=== PATIENT | female | born 1965 | race Caucasian/White ===

== ENCOUNTER 2017-02-09 17:34 | Inpatient (IN) | payer OTHER ==
[~2017-02-09] VITALS: Ht 162.6 cm; Wt 58.5 kg
[~2017-02-09 17:34] MED LIST changes: -BACTRIM DS TAB1 EACH PO; -CIPROFLOXACIN500 M1 PO; -CYMBALTA30 MG PO; -DOLOPHINE HCL5 MG PO; -HYDROCODON-ACE1 EAC8 PO; -POTASSIUM600 MG PO
[2017-02-09 17:41] VITALS: BP 108/60
[2017-02-09] MEDS ORDERED: HYDROCODON-ACE1 EAC8 PO (17:44)
[2017-02-09] MEDS ORDERED: DOLOPHINE HCL5 MG PO (17:44)
[2017-02-09 18:54] LABS: URINE BILIRUBIN NEGATIVE (Negative); URINE BLOOD NEGATIVE (Negative); URINE CLARITY CLEAR; URINE COLOR YELLOW; URINE GLUCOSE-RANDOM NEGATIVE (Negative); URINE KETONES NEGATIVE (Negative); URINE LEUKOCYTES-REFLEX NEGATIVE (Negative); URINE NITRITE-REFLEX NEGATIVE (Negative); URINE PROTEIN NEGATIVE (Negative); URINE UROBILINOGEN 0.2 E.U./dl (0.2-1.0)
[2017-02-09 19:49] LABS: ABSOLUTE EOSINOPHILS 0.1 thou/uL (0.0-0.7); ABSOLUTE LYMPHOCYTES 2.6 thou/uL (0.8-5.3); ABSOLUTE MONOCYTES 0.5 thou/uL (0.0-1.2); ABSOLUTE NEUTROPHILS 1.9 thou/uL (1.6-8.1); BASOPHILS 0.4 %; EOSINOPHILS 2.2 %; HEMATOCRIT 24.5 % (37.0-47.0); HEMOGLOBIN 7.2 gm/dL (12.0-15.0); LYMPHOCYTES 50.1 %; MCH 22.9 pg (26.0-34.0); MCHC 29.3 g/dL (28.0-37.0); MONOCYTES 9.8 %; MPV 7.2 fl. (7.2-11.1); NUCLEATED RBCS 0 /100WBC; PLATELET COUNT* 485 thou/uL (150-400); POLYS 37.5 %; RBC 3.13 mil/uL (4.20-5.00); RDW-CV 17.3 % (10.5-14.5); WBC 5.1 thou/uL (4.0-11.0)
[2017-02-09 19:54] LABS: ANION GAP 8 mmol/L (7-16); BUN 19 mg/dL (7-18); CALCIUM 7.6 mg/dL (8.5-10.1); CHLORIDE 108 mmol/L (98-107); CO2 23 mmol/L (21-32); CREATININE 0.6 mg/dL (0.6-1.3); GLUCOSE 109 mg/dL (70-99); POTASSIUM 3.6 mmol/L (3.5-5.1); SODIUM 139 mmol/L (136-145)
[2017-02-09 19:56] LABS: APTT 41.7 Seconds (25.0-31.3); INR 1.1; PROTIME 11.1 Seconds (9.20-11.50)
[2017-02-09 20:00] LABS: ALBUMIN 3.1 g/dL (3.4-5.0); ALKALINE PHOSPHATASE 215 U/L (46-116); LIPASE 107 U/L (73-393); SGOT 21 U/L (15-37); SGPT 26 U/L (30-65); TOTAL BILIRUBIN 0.3 mg/dL (<0.1-1.0); TOTAL PROTEIN 6.4 g/dL (6.4-8.2); TROPONIN-I LEVEL <0.06 ng/mL (<0.06)
[2017-02-09 20:12] LABS: ANISOCYTOSIS 1+; HYPOCHROMASIA 2+; PLATELET ESTIMATE ADEQUATE; TARGET CELLS 1+
[2017-02-09 21:32] VITALS: BP 92/54
[2017-02-09 22:00] VITALS: BP 105/64
[2017-02-10 07:59] VITALS: BP 92/48
[2017-02-10 11:40] LABS: CALCIUM 7.4 mg/dL (8.5-10.1); CREATININE 0.7 mg/dL (0.6-1.3); MAGNESIUM 1.9 mg/dL (1.8-2.4); POTASSIUM 3.8 mmol/L (3.5-5.1)
[2017-02-10 20:00] VITALS: BP 114/68
[2017-02-11 01:15] VITALS: BP 103/63; BP 86/44; BP 87/46; BP 90/49; BP 94/53
[2017-02-11 01:35] VITALS: BP 112/69
[2017-02-11 05:00] VITALS: BP 90/49
[2017-02-11 07:22] LABS: HEMATOCRIT 25.1 % (37.0-47.0); HEMOGLOBIN 7.6 gm/dL (12.0-15.0); MCH 23.4 pg (26.0-34.0); MCHC 30.2 g/dL (28.0-37.0); MCV 77.3 fL (80.0-100.0); NUCLEATED RBCS 0 /100WBC; RBC 3.25 mil/uL (4.20-5.00); RDW-CV 16.5 % (10.5-14.5); WBC 3.1 thou/uL (4.0-11.0)
[2017-02-11 07:29] LABS: CALCIUM 7.3 mg/dL (8.5-10.1); CREATININE 0.6 mg/dL (0.6-1.3); POTASSIUM 3.8 mmol/L (3.5-5.1)
[2017-02-11 07:31] LABS: PLATELET COUNT* 369 thou/uL (150-400)
[2017-02-11 07:53] LABS: ABSOLUTE EOSINOPHILS 0.2 thou/uL (0.0-0.7); ABSOLUTE LYMPHOCYTES 1.5 thou/uL (0.8-5.3); ABSOLUTE MONOCYTES 0.1 thou/uL (0.0-1.2); ABSOLUTE NEUTROPHILS 1.2 thou/uL (1.6-8.1); ATYPICAL LYMPHS 1 %; HYPOCHROMASIA 2+; PLATELET ESTIMATE ADEQUATE
[2017-02-11 07:54] LABS: ANISOCYTOSIS 2+; POIKILOCYTOSIS 1+; TARGET CELLS Occasional
[2017-02-11 07:55] LABS: OVALOCYTES Occasional
--- NOTE | 2017-02-11 14:00 | EKG ---
[place] [address] ELECTROCARDIOGRAM REPORT Name: TONY MEDINA Room: [address] ADM IN .R.#: [id number] Admission: 02/09/17 Attend Phys: Sonja Isaac Discharge: Date of : 67 Report #: [id number] THIS REPORT FOR: //name// [facility] ED Test Date: 2017-02-09 Test Time: 20:07:57 Pat Name: TONY MEDINA Department: Room: [facility] Gender: F Recycle Driver: OSCAR : 1965 Requested By: Yary Edwards Order Number: [id number] MD: Amanuel Reid Measurements Intervals [place] Rate: 79 P: 60 MT: 152 QRS: 65 QRSD: 74 T: 39 QT: 371 QTc: 426 Interpretive Statements Sinus rhythm Low voltage, precordial leads Borderline T abnormalities, anterior leads Compared to ECG 11/30/2016 11:29:15 Low QRS voltage now present Electronically Signed On 02-11-2017 14:00:34 IN STORE MARKETING ASSOCIATE by Amanuel Reid [email or web address] <ELECTRONICALLY SIGNED> By: Amanuel Reid MD, FACC 02/11/17 1400 06 06 Amanuel Reid MD, FAC /EPI
[2017-02-11 14:44] VITALS: BP 90/49
[2017-02-11 15:14] VITALS: BP 90/49
[2017-02-11 18:25] VITALS: BP 90/49
[2017-02-14 17:07] LABS: ANA INTERPRETATION Negative (())
--- NOTE | 2017-02-17 20:20 | CON ---
[address] [address] CONSULTATION Name: ADAMTONY L Room: [address]R.#: [id number] Admission: 02/09/17 Attend Phys: Sonja Isaac Discharge: 02/11/17 Date of : 67 Report #: [id number] THIS REPORT FOR: //name// CC: Terrell Lockhart DO DICTATED BY: Naina Ignacio [facility] DATE OF SERVICE: 02/10/2017 PRIMARY CARE PHYSICIAN: Terrell Squires D.O. REFERRING PHYSICIAN: Josh Lockhart DO Please note at the time of this dictation, the patient was seen and physically examined by myself. REASON FOR CONSULTATION: Anemia. HISTORY OF PRESENT ILLNESS: This is a pleasant 51-year-old female who arrived to the Emergency Room complaining of generalized weakness. She was having shortness of breath for the past several weeks and also having some numbness and tingling in her hands and fingers. The patient has been seen by us in the past. She underwent an EGD with Dr. Titus back in December of 2016, which noted that she had a gastric bypass noted and she was complaining of dysphagia and he dilated her with a 54-Faroese with no changes in her esophagus. He recommended that she have a video swallow done, but she never got that done and we will proceed with that tomorrow while she is here in the hospital. She did have a flex sigmoidoscopy done in 2014 that was completely normal, showing nonthrombosed external hemorrhoids. The patient has a longstanding history of B12 deficiency as well as an iron deficiency secondary to malabsorption from her previous gastric bypass and then having a gastrectomy done in the past. ALLERGIES: AMOXICILLIN or AUGMENTIN. MEDICATIONS: From home is Xanax, methadone, hydrocodone, Lamictal, Lexapro, Neurontin and B12 shot. PAST MEDICAL HISTORY: Includes iron deficiency and B12 deficiency. PAST SURGICAL HISTORY: Gastrectomy, C-sections, bilateral tubal ligation and cholecystectomy. She has had a neck fracture and this has been repaired with screws, right elbow tendon reconstruction and cervical [place] [address] CONSULTATION Name: TONY MEDINA Room: [address]#: [id number] Admission: 02/09/17 Attend Phys: Sonja Isaac Discharge: 02/11/17 Date of : 67 Report #: [id number] right BKA approximately 7 months ago due to a severe Staph infection. She has a Port-A-Cath, history of seizures and history of left arm surgery. PAST FAMILY HISTORY: Essentially negative. SOCIAL HISTORY: Denies any alcohol, tobacco or illegal drug use. REVIEW OF SYSTEMS: Twelve-point review of systems is essentially negative except what is mentioned in the HPI. PHYSICAL EXAMINATION: VITAL SIGNS: Temperature 36.9, pulse 87, respirations 18 and blood pressure 92/48. HEART: Regular rate and rhythm. LUNGS: Clear. ABDOMEN: Soft. Positive bowel sounds in all 4 quadrants with no masses or tenderness noted. LABORATORY DATA: Hemoglobin is 7.2, hematocrit 24.5, white count is 5.1, platelets 485 and MCV is 78. The patient's baseline hemoglobin is usually around 10. Sodium 141, potassium 3.8, chloride 111, CO2 25, BUN is 20, creatinine 0.7, GFR is 89 and glucose is 99. Her iron is 11, ferritin is 9 and B12 286. Total bilirubin was 0.3, alkaline phosphatase 215, ALT 26 and AST is 21. It has been noted her alkaline phosphatase has been elevated since 2012. IMPRESSION: 1. Iron-deficiency anemia from her gastrectomy. 2. Fatigue. 3. B12 deficiency. 4. Dysphagia. PLAN: 1. Video swallow tomorrow for evaluation for her dysphagia despite normal EGD. 2. Iron infusion currently. 3. B12 injections. 4. Blood transfusion today. No plan. 5. No plans for any endoscopy studies at this time. Thank you for allowing us to participate in this patient's care. Please do not hesitate to call with any questions in regard to this consult. I have seen and examined. The patient is a -cble-biw white female with complicated medical history, was admitted to hospital for complaints of fatigue. She had a longstanding history of chronic iron deficiency anemia related to her subtotal gastrectomy and had undergone endoscopic studies of her upper and lower GI tract in the past. She has had some problems intermitt[place] [address] CONSULTATION Name: TONY MEDINA Room: [address] IN ..#: [id number] Admission: 02/09/17 Attend Phys: Sonja Isaac Discharge: 02/11/17 Date of : 67 Report #: [id number] and underwent upper endoscopy on 12/14/2016 at [facility]. The examination revealed postsurgical change compatible with subtotal gastrectomy with a gastric pouch. At that time, a dilator with a 54-Faroese Savary dilator of guidewire and found no apparent change. I recommended she undergo a barium swallow with dissolvable capsule to evaluate complaints of dysphagia as well as a video swallow study and get labs done to include a CBC, CMP, GGTP, sed rate, CRP, ferritin, fasting carotene level, zinc, Copper and prealbumin. However, she never had these done. She is now here, we will get these studies done while she in the hospital. She did note that her last flexible sigmoidoscopy performed in December or May 2014 at which time she had hemorrhoidal disease. Her last full colonoscopy was performed in 12/04/2010 at [facility] and was only remarkable for external hemorrhoids. The remainder of the colon to the level of the terminal ileum is normal. It has been noted that she has also been low on copper and zinc and I have to tried to get her on replacement therapy for the same. she has been compliant with the same. We will proceed with barium swallow study tomorrow and she would like to get here shortly thereafter. We will then await her response to iron infusions under the direction of Dr. Shipley and she will likely need to get all the other tests done that I have recommended to evaluate for that she is low on zinc, copper and whether or not she needs to have any type of evaluation for short gut. <ELECTRONICALLY SIGNED> By: Vasile Titus DO 02/17/17 2020 1832 Osito Titus DO /sebastien
== END 2017-02-11 16:45 | disposition home or self-care (01) | DRG 812 ==
LOC: M.ERS 17:34 → M.TBA-ER 21:09 → M.ORTHSURG 21:09
PROVIDERS: Nurse Practitioner Adult Health; Physician Assistant; ADMIT Internal Medicine
PROC: 30233N1 Transfusion of Nonautologous Red Blood Cells into Peripheral Vein, Percutaneous Approach (ICD-10-PCS; principal; 2017-02-11)
DX: D50.9 Iron deficiency anemia, unspecified (principal); E44.0 Moderate protein-calorie malnutrition; D63.8 Anemia in other chronic diseases classified elsewhere; M25.50 Pain in unspecified joint; R13.10 Dysphagia, unspecified; E53.8 Deficiency of other specified B group vitamins; Z90.49 Acquired absence of other specified parts of digestive tract; Z88.8 Allergy status to other drugs, medicaments and biological substances; Z88.1 Allergy status to other antibiotic agents; Z90.3 Acquired absence of stomach [part of]; Z89.511 Acquired absence of right leg below knee; Z79.899 Other long term (current) drug therapy; Z82.49 Family history of ischemic heart disease and other diseases of the circulatory system; Z89.611 Acquired absence of right leg above knee; Z96.659 Presence of unspecified artificial knee joint; Z68.22 Body mass index [BMI] 22.0-22.9, adult; Z23 Encounter for immunization

== ENCOUNTER → 2017-02-09 | Outpatient (CLI) | payer OTHER ==
[~2017-02-09] MED LIST: ACETAMINOPHEN-1 EAC1; ACETAMINOPHEN-1 EAC1 PO; ACYCLOVIR 400400 MG PO; ALPRAZOLAM 0.50.5 M1 PO; AMBIEN 5 MG TABL5 M1 PO; B-12 SHOT IM; B-122500 MCG PO; B12INJ SUBQ; BACTRIM DS TAB1 EACH PO; BIOTENE DRY MO237 ML; CARAFATE 1 GM TA1 G1 PO; CELEXA40 MG PO; CIPROFLOXACIN500 M1 PO; CLEOCIN HCL150 MG PO; CREON 20 EC CA497 MG; CREON 20 EC CA497 MG PO; CREON DR 12,001 EACH; CREON DR 12,001 EACH PO; CYANOCOBAL1000 MCG/1 IM; CYMBALTA30 MG PO; DESYREL50 MG PO; DOLOPHINE HCL5 MG PO; ENDOCET 5-3251 EACH PO; FENTANYL PA50 MCG/HR TP; FLAGYL500 MG PO; FLEXERIL PO; GABAPENTIN 100100 MG PO; GABAPENTIN100 MG PO; HYDROCODON-ACE1 EAC7 PO; HYDROCODON-ACE1 EAC8 PO; HYDROXYZINE HCL25 M2 GT; IRON PO; IRON325 PO; LAMICTAL25 MG PO; LEXAPRO20 MG PO; MULTIVITAMINS PO; NEURONTIN 300300 M1 PO; NORCO 5-325 TA1 EAC1 PO; NORCO 5-325 TA1 EACH PO; NORCO 7.5-3251 EACH PO; NYSTATIN100000 UNI PO; OXYCODONE HCL 55 MG PO; OXYCODONE PO; PERCOCET 5-3251 EACH PO; PERCOCET PO; PHENERGAN 25 MG25 M1 PO; POTASSIUM600 MG PO; PROMETHAZINE12.5 M1 PO; PROMS25 WY RECTAL; TPN ELECTROLYTE20 ML IV; TRANSDERM-SCO1 PATC1 TD; ULTRAM 50MG TAB50 MG PO; VANCOMYCIN1.5 GM/250 IV; VANCOMYCIN100 MG/M1 PO; VICODIN PO; XANAX 0.25 MG0.25 MG PO; ZOFRAN 4 MG ORAL4 M1 PO; ZOFRAN ODT4 MG DISSOLVE
[2017-02-09 15:25] LABS: HEMOGLOBIN 7.1 gm/dL (12.0-15.0); MCH 22.9 pg (26.0-34.0); MCHC 29.5 g/dL (28.0-37.0); MCV 77.8 fL (80.0-100.0); MPV 6.7 fl. (7.2-11.1); RBC 3.09 mil/uL (4.20-5.00); WBC 4.4 thou/uL (4.0-11.0)
== END ==
LOC: M.LAB 14:55
PROVIDERS: Family Medicine
DX: R89.9 Unspecified abnormal finding in specimens from other organs, systems and tissues (principal)

== ENCOUNTER → 2017-03-25 | Outpatient (CLI) | payer OTHER ==
[~2017-03-25] MED LIST changes: +BACTRIM DS TAB1 EACH PO; +CIPROFLOXACIN500 M1 PO; +CYMBALTA30 MG PO; +DOLOPHINE HCL5 MG PO; +HYDROCODON-ACE1 EAC8 PO; +POTASSIUM600 MG PO
== END ==
LOC: M.RAD 03-23 10:34
DX: S42.92XA Fracture of left shoulder girdle, part unspecified, initial encounter for closed fracture (principal); W19.XXXA Unspecified fall, initial encounter; Y93.89 Activity, other specified; Y92.89 Other specified places as the place of occurrence of the external cause; Y99.8 Other external cause status; Z88.8 Allergy status to other drugs, medicaments and biological substances

== ENCOUNTER 2017-06-13 11:52 | Emergency (ER) | payer OTHER ==
[~2017-06-13] VITALS: Ht 162.6 cm; Wt 61.2 kg
[~2017-06-13 11:52] MED LIST changes: -BACTRIM DS TAB1 EACH PO; -CIPROFLOXACIN500 M1 PO; -CYMBALTA30 MG PO; -POTASSIUM600 MG PO
[2017-06-13 12:26] LABS: URINE BILIRUBIN NEGATIVE (Negative); URINE BLOOD NEGATIVE (Negative); URINE CLARITY CLEAR; URINE COLOR YELLOW; URINE GLUCOSE-RANDOM NEGATIVE (Negative); URINE KETONES NEGATIVE (Negative); URINE LEUKOCYTES-REFLEX TRACE (Negative); URINE NITRITE-REFLEX POSITIVE (Negative); URINE PROTEIN NEGATIVE (Negative); URINE SPECIFIC GRAVITY >= 1.030 (1.005-1.030); URINE UROBILINOGEN 0.2 E.U./dl (0.2-1.0)
[2017-06-13 12:31] LABS: SQUAMOUS 0-3 Few /LPF (0-3)
[2017-06-13 12:32] LABS: BACTERIA-REFLEX >30 Many /HPF (None Seen); CASTS None Seen /LPF (None Seen); CRYSTALS None Seen /LPF (None Seen); MUCUS None Seen strn/LPF (None Seen); URINE RBC 3-10 Few /HPF (0-2)
[2017-06-13 12:59] LABS: ABSOLUTE EOSINOPHILS 0.5 thou/uL (0.0-0.7); ABSOLUTE LYMPHOCYTES 2.4 thou/uL (0.8-5.3); ABSOLUTE MONOCYTES 0.6 thou/uL (0.0-1.2); ABSOLUTE NEUTROPHILS 3.2 thou/uL (1.6-8.1); BASOPHILS 0.6 %; EOSINOPHILS 7.4 %; HEMATOCRIT 28.9 % (37.0-47.0); HEMOGLOBIN 9.2 gm/dL (12.0-15.0); LYMPHOCYTES 35.9 %; MCH 32.2 pg (26.0-34.0); MCV 100.7 fL (80.0-100.0); MONOCYTES 8.9 %; NUCLEATED RBCS 0 /100WBC; PLATELET COUNT* 327 thou/uL (150-400); POLYS 47.2 %; RBC 2.87 mil/uL (4.20-5.00); RDW-CV 13.8 % (10.5-14.5); WBC 6.7 thou/uL (4.0-11.0)
[2017-06-13 13:11] LABS: CALCIUM 7.6 mg/dL (8.5-10.1); CREATININE 0.8 mg/dL (0.6-1.3); POTASSIUM 3.5 mmol/L (3.5-5.1)
[2017-06-13 13:16] LABS: ALBUMIN 2.8 g/dL (3.4-5.0); TOTAL BILIRUBIN 0.3 mg/dL (<0.1-1.0); TOTAL PROTEIN 5.7 g/dL (6.4-8.2)
[2017-06-13] MEDS ORDERED: CIPROFLOXACIN500 M1 PO (13:39)
[2017-06-13 13:53] VITALS: BP 114/76
== END 2017-06-13 13:53 | disposition home or self-care (01) ==
LOC: M.ERS 11:52
PROVIDERS: Emergency Medicine
DX: N39.0 Urinary tract infection, site not specified (principal); Z98.890 Other specified postprocedural states; Z90.49 Acquired absence of other specified parts of digestive tract; Z88.1 Allergy status to other antibiotic agents; Z88.6 Allergy status to analgesic agent; Z88.8 Allergy status to other drugs, medicaments and biological substances

== ENCOUNTER 2017-09-11 11:17 | Emergency (ER) | payer OTHER ==
[~2017-09-11] VITALS: Ht 162.6 cm; Wt 56.7 kg
[~2017-09-11 11:17] MED LIST changes: +CIPROFLOXACIN500 M1 PO
[2017-09-11 11:37] LABS: URINE BILIRUBIN NEGATIVE (Negative); URINE BLOOD NEGATIVE (Negative); URINE CLARITY CLEAR; URINE COLOR YELLOW; URINE GLUCOSE-RANDOM NEGATIVE (Negative); URINE KETONES NEGATIVE (Negative); URINE LEUKOCYTES-REFLEX 1+ (Negative); URINE PROTEIN NEGATIVE (Negative)
[2017-09-11 11:39] LABS: URINE NITRITE-REFLEX POSITIVE (Negative)
[2017-09-11 11:49] LABS: SQUAMOUS 4-10 Moderate /LPF (0-3); URINE RBC 3-10 Few /HPF (0-2); URINE WBC-REFLEX 6-15 Few /HPF (0-5)
[2017-09-11 11:50] LABS: BACTERIA-REFLEX >30 Many /HPF (None Seen); CASTS None Seen /LPF (None Seen); CRYSTALS None Seen /LPF (None Seen); MUCUS None Seen strn/LPF (None Seen)
[2017-09-11 11:59] LABS: AMP/METHAMP Negative (Negative); BARBITURATES Negative (Negative); BENZODIAZEPINES Negative (Negative); COCAINE Negative (Negative); METHADONE POSITIVE (Negative); OPIATES POSITIVE (Negative); PCP Negative (Negative); THC Negative (Negative)
[2017-09-11 12:17] LABS: ABSOLUTE EOSINOPHILS 0.1 thou/uL (0.0-0.7); ABSOLUTE LYMPHOCYTES 1.5 thou/uL (0.8-5.3); ABSOLUTE MONOCYTES 0.4 thou/uL (0.0-1.2); ABSOLUTE NEUTROPHILS 1.8 thou/uL (1.6-8.1); BASOPHILS 0.7 %; EOSINOPHILS 3.2 %; LYMPHOCYTES 38.4 %; MCH 28.6 pg (26.0-34.0); MCHC 32.2 g/dL (28.0-37.0); MCV 88.8 fL (80.0-100.0); MONOCYTES 10.7 %; MPV 7.3 fl. (7.2-11.1); NUCLEATED RBCS 0 /100WBC; PLATELET COUNT* 270 thou/uL (150-400); RBC 3.49 mil/uL (4.20-5.00); RDW-CV 18.5 % (10.5-14.5); WBC 3.8 thou/uL (4.0-11.0)
[2017-09-11 12:22] LABS: CALCIUM 7.9 mg/dL (8.5-10.1); CREATININE 0.8 mg/dL (0.6-1.3); POTASSIUM 3.1 mmol/L (3.5-5.1)
[2017-09-11 12:27] LABS: ALBUMIN 2.5 g/dL (3.4-5.0); TOTAL BILIRUBIN 0.6 mg/dL (<0.1-1.0); TOTAL PROTEIN 5.5 g/dL (6.4-8.2)
[2017-09-11] MEDS ORDERED: BACTRIM DS TAB1 EACH PO (14:59)
[2017-09-11 15:25] VITALS: BP 97/64
== END 2017-09-11 15:26 | disposition home or self-care (01) ==
LOC: M.ERS 11:17
PROVIDERS: Nurse Practitioner Family
DX: N39.0 Urinary tract infection, site not specified (principal); Z98.890 Other specified postprocedural states; Z90.49 Acquired absence of other specified parts of digestive tract; Z88.8 Allergy status to other drugs, medicaments and biological substances; Z88.1 Allergy status to other antibiotic agents; Z88.6 Allergy status to analgesic agent

== ENCOUNTER 2017-09-15 15:07 | Emergency (ER) | payer OTHER ==
[~2017-09-15] VITALS: Ht 162.6 cm; Wt 59.0 kg
[~2017-09-15 15:07] MED LIST changes: +BACTRIM DS TAB1 EACH PO
[2017-09-15 16:09] LABS: ABSOLUTE EOSINOPHILS 0.1 thou/uL (0.0-0.7); ABSOLUTE LYMPHOCYTES 2.9 thou/uL (0.8-5.3); ABSOLUTE MONOCYTES 0.7 thou/uL (0.0-1.2); ABSOLUTE NEUTROPHILS 2.8 thou/uL (1.6-8.1); BASOPHILS 0.7 %; EOSINOPHILS 1.6 %; HEMATOCRIT 30.5 % (37.0-47.0); HEMOGLOBIN 9.6 gm/dL (12.0-15.0); LYMPHOCYTES 43.9 %; MCH 28.1 pg (26.0-34.0); MCHC 31.6 g/dL (28.0-37.0); MCV 89.1 fL (80.0-100.0); MONOCYTES 11.1 %; MPV 7.6 fl. (7.2-11.1); NUCLEATED RBCS 0 /100WBC; PLATELET COUNT* 279 thou/uL (150-400); POLYS 42.7 %; RBC 3.43 mil/uL (4.20-5.00); RDW-CV 18.5 % (10.5-14.5); WBC 6.6 thou/uL (4.0-11.0)
[2017-09-15 16:21] LABS: ANION GAP 3 mmol/L (7-16); BUN 13 mg/dL (7-18); CALCIUM 7.5 mg/dL (8.5-10.1); CHLORIDE 107 mmol/L (98-107); CO2 28 mmol/L (21-32); CREATININE 0.9 mg/dL (0.6-1.3); GLUCOSE 96 mg/dL (70-99); POTASSIUM 3.4 mmol/L (3.5-5.1); SODIUM 138 mmol/L (136-145)
[2017-09-15 16:25] LABS: ALBUMIN 2.6 g/dL (3.4-5.0); ALKALINE PHOSPHATASE 164 U/L (46-116); SGOT 39 U/L (15-37); SGPT 31 U/L (30-65); TOTAL BILIRUBIN 0.5 mg/dL (<0.1-1.0); TOTAL PROTEIN 5.4 g/dL (6.4-8.2); TROPONIN-I LEVEL <0.06 ng/mL (<0.06)
[2017-09-15 16:58] LABS: URINE BLOOD NEGATIVE (Negative); URINE CLARITY CLEAR; URINE COLOR YELLOW; URINE GLUCOSE-RANDOM NEGATIVE (Negative); URINE KETONES TRACE (Negative); URINE LEUKOCYTES NEGATIVE (Negative); URINE NITRITE NEGATIVE (Negative); URINE PROTEIN 1+ (Negative); URINE SPECIFIC GRAVITY >= 1.030 (1.005-1.030); URINE UROBILINOGEN 0.2 E.U./dl (0.2-1.0)
[2017-09-15 17:00] LABS: ICTOTEST (BILI CONFIRMATORY) Negative (Negative); URINE BILIRUBIN 1+ (Negative)
[2017-09-15 17:08] LABS: AMP/METHAMP Negative (Negative); BARBITURATES Negative (Negative); BENZODIAZEPINES Negative (Negative); COCAINE Negative (Negative); METHADONE POSITIVE (Negative); OPIATES POSITIVE (Negative); PCP Negative (Negative); THC Negative (Negative)
[2017-09-15 17:36] VITALS: BP 116/63
--- NOTE | 2017-09-15 17:41 | EKG ---
[place] [address] ELECTROCARDIOGRAM REPORT Name: TONY MEDINA Room: [facility]#: [id number] Admission: 09/15/17 Attend Phys: Discharge: 09/15/17 Date of : 67 Report #: [id number] THIS REPORT FOR: //name// [facility] ED Test Date: 2017-09-15 Test Time: 15:11:57 Pat Name: TONY MEDINA Department: Room: Gender: F Bulk Station Operator: KLAUS : 1965 Requested By: Leigh Diaz Order Number: [id number] MD: Fernando Villavicencio Measurements Intervals [place] Rate: 105 P: 89 [place]: 178 QRS: 106 QRSD: 70 T: -10 QT: 383 QTc: 507 Interpretive Statements Sinus tachycardia Left atrial enlargement Right axis deviation Low voltage, precordial leads Nonspecific T abnormalities, anterior leads Borderline prolonged QT interval Compared to ECG 02/09/2017 20:07:57 Right-axis deviation now present Sinus rhythm no longer present T-wave abnormality still present Electronically Signed On 09-15-2017 17:41:25 CDT by Fernando Villavicencio [email or web address] <ELECTRONICALLY SIGNED> By: Fernando Villavicencio MD, [facility] 09/15/17 1741 1511 1511 Fernando Villavicencio MD, [facility] /EPI
== END 2017-09-15 17:37 | disposition home or self-care (01) ==
LOC: M.ERS 15:07
PROVIDERS: Nurse Practitioner Family
DX: T40.2X2A Poisoning by other opioids, intentional self-harm, initial encounter (principal); T48.1X2A Poisoning by skeletal muscle relaxants [neuromuscular blocking agents], intentional self-harm, initial encounter; R00.0 Tachycardia, unspecified; Z98.890 Other specified postprocedural states; Z90.49 Acquired absence of other specified parts of digestive tract; Z88.8 Allergy status to other drugs, medicaments and biological substances; Z88.1 Allergy status to other antibiotic agents; Z88.6 Allergy status to analgesic agent; Y92.89 Other specified places as the place of occurrence of the external cause

== ENCOUNTER 2017-10-19 11:46 | Emergency (ER) | payer OTHER ==
[~2017-10-19] VITALS: Ht 162.6 cm; Wt 50.8 kg
[2017-10-19] MEDS ORDERED: POTASSIUM600 MG PO (12:03)
[2017-10-19] MEDS ORDERED: CYMBALTA30 MG PO (12:03)
[2017-10-19 12:52] LABS: ABSOLUTE LYMPHOCYTES 2.1 thou/uL (0.8-5.3); ABSOLUTE MONOCYTES 0.4 thou/uL (0.0-1.2); ABSOLUTE NEUTROPHILS 2.6 thou/uL (1.6-8.1); BASOPHILS 0.8 %; EOSINOPHILS 0.8 %; HEMATOCRIT 23.7 % (37.0-47.0); HEMOGLOBIN 7.7 gm/dL (12.0-15.0); MCH 28.1 pg (26.0-34.0); MCHC 32.3 g/dL (28.0-37.0); MCV 86.9 fL (80.0-100.0); MONOCYTES 8.1 %; MPV 7.4 fl. (7.2-11.1); NUCLEATED RBCS 0 /100WBC; PLATELET COUNT* 330 thou/uL (150-400); POLYS 49.3 %; RBC 2.73 mil/uL (4.20-5.00); RDW-CV 16.2 % (10.5-14.5); WBC 5.2 thou/uL (4.0-11.0)
[2017-10-19 13:01] LABS: CALCIUM 7.3 mg/dL (8.5-10.1); CREATININE 0.5 mg/dL (0.6-1.3)
[2017-10-19 13:03] LABS: APTT 40.7 Seconds (25.0-31.3); INR 1.1; POTASSIUM 2.9 mmol/L (3.5-5.1); PROTIME 11.3 Seconds (9.20-11.50)
[2017-10-19 13:06] LABS: ALBUMIN 2.3 g/dL (3.4-5.0); TOTAL BILIRUBIN 0.2 mg/dL (<0.1-1.0)
[2017-10-19 17:28] VITALS: BP 124/82
--- NOTE | 2017-10-19 18:59 | EKG ---
[place] [address] ELECTROCARDIOGRAM REPORT Name: TONY MEDINA Room: [facility]#: [id number] Admission: 10/19/17 Attend Phys: Discharge: 10/19/17 Date of : 67 Report #: [id number] THIS REPORT FOR: //name// [facility] ED Test Date: 2017-10-19 Test Time: 12:26:59 Pat Name: TONY MEDINA Department: Room: Gender: F Director Of Enterprise Architecture: Ximena ALONSO : 1965 Requested By: Reji Medel Order Number: [id number] MD: Fernando Villavicencio Measurements Intervals [place] Rate: 101 P: 82 NE: 175 QRS: 80 QRSD: 80 T: 30 QT: 362 QTc: 470 Interpretive Statements Sinus tachycardia Low voltage, precordial leads Borderline T abnormalities, anterior leads Compared to ECG 09/15/2017 15:11:57 Right-axis deviation no longer present T-wave abnormality still present Electronically Signed On 10-19-2017 18:59:37 CDT by Fernando Villavicencio [email or web address] <ELECTRONICALLY SIGNED> By: Fernando Villavicencio MD, FAC 10/19/17 1859 1226 1226 Fernando Villavicencio MD, [facility] /EPI
== END 2017-10-19 12:58 | disposition designated cancer center or children's hospital (05) ==
LOC: M.ERS 11:46
PROVIDERS: Family Medicine
DX: D64.9 Anemia, unspecified (principal); E87.6 Hypokalemia; R19.7 Diarrhea, unspecified; R53.1 Weakness; Z90.49 Acquired absence of other specified parts of digestive tract; Z98.84 Bariatric surgery status; Z88.1 Allergy status to other antibiotic agents; Z88.8 Allergy status to other drugs, medicaments and biological substances

== ENCOUNTER 2018-01-04 16:20 | Inpatient (IN) | payer OTHER ==
[~2018-01-04] VITALS: Ht 162.6 cm; Wt 53.1 kg
--- NOTE | ~2018-01-04 | CON ---
[address] [address] CONSULTATION Name: FEIKAVITATONY Luc Room: [address] IN M.R.#: [id number] Admission: 01/04/18 Attend Phys: Aida Call MD Discharge: 01/08/18 Date of : 67 Report #: [id number] THIS REPORT FOR: //name// CC: Terrell Call MD DATE OF SERVICE: 01/06/2018 REFERRING PHYSICIAN: Aida Call MD REASON FOR CONSULTATION: 1. Severe anemia and weight loss -- evaluate for upper and lower GI tract issues. 2. Recurrent iron deficiency anemia, likely related to poor iron and B12 absorption. 3. Status post remote biliary pancreatic diversion with gastrojejunostomy, followed by subtotal gastrectomy with gastrojejunostomy in 2009, with continued problem with malabsorption. 4. Weight loss of 20 pounds over the last couple of months. RECOMMENDATIONS: 1. We will proceed with bowel preparation today and endoscopic evaluation of her upper and lower GI tract tomorrow, 01/07/2018. I have discussed the plans with the patient as well and she is agreeable to the same. 2. We continued to have her follow up with Dr. Shipley for iron infusions and B12 absorption. She will be referred to be on oral or sublingual B12 as opposed to the shots because of not affordable. 3. We will make further recommendations after endoscopy is performed. HISTORY OF PRESENT ILLNESS: The patient is a very pleasant, but unfortunate 52-year-old white female well known to me from previous evaluations in the past, has been in the hospital with symptomatic anemia and fatigue. She has also had some problems with her swallowing, which is nothing new for her, but also feels that there is a problem with the back of her throat when she swallows. She denies any actual dysphagia. She has a complicated history with regards to her GI tract with a history of remote biliopancreatic diversion with [address] Chávez, but then eventually had to have a second surgical intervention with subtotal gastrectomy with gastrojejunostomy by Dr. Cast at [facility]. She has had problem with chronic malabsorption of iron, has previously been followed up with Dr. Shipley and before that with another logger. She has missed several appointments and is now severely iron deficient. She is now for evaluation. Her most recent hemoglobin on admission was only 5.1. [place] [address] CONSULTATION Name: TONY MEDINA Room: [address]#: [id number] Admission: 01/04/18 Attend Phys: Aida Call MD Discharge: 01/08/18 Date of : 67 Report #: [id number] ALLERGIES: None. MEDICATIONS: Include Lamictal, Percocet, Cymbalta, Ambien, Maria Luisa. PAST MEDICAL AND SURGICAL HISTORY: Remarkable for previous biliopancreatic diversion in 2000, followed by eventually subtotal gastrectomy with gastrojejunostomy by Dr. Latrell Cast in 2009. She has had problem with chronic iron and B12 absorption. She has had problems with malabsorption as well. She has had previous cholecystectomy. She has had unfortunately failed knee replacement, which eventually ended up having her undergo a right AKA. She has had abdominal hernia with mesh repair. She has had excessive skin removal, cholecystectomy, she had neck fracture with screws. SOCIAL HISTORY: Her marital status is unknown. She does not smoke or drink. FAMILY HISTORY: Negative. PHYSICAL EXAMINATION: GENERAL: An ill-appearing 52-year-old white female who is awake and alert. CARDIOPULMONARY: Revealed regular rhythm. LUNGS: Clear. ABDOMEN: Soft and not particularly tender. No rebound or guarding. LABORATORY DATA: From admission revealed hemoglobin only 5.1. DISCUSSION: At the present time, we will proceed with endoscopic evaluation of upper and lower GI tract tomorrow and make further recommendations thereafter. By: 0123 [id number] Titus DO /sebastien
--- NOTE | ~2018-01-04 | PROC ---
[address] [address] PROCEDURE REPORT Name: TONY MEDINA Room: [address]#: [id number] Admission: 01/04/18 Attend Phys: Aida Call MD Discharge: 01/08/18 Date of : 67 Report #: [id number] THIS REPORT FOR: //name// For GI report, please see the Provation report in Perceptive 7. By: 0844Medical Records Staff TARA /JAN
[~2018-01-04 16:20] MED LIST changes: +CYMBALTA30 MG PO; +POTASSIUM600 MG PO
[2018-01-04 16:47] VITALS: BP 127/28
[2018-01-04] MEDS ORDERED: NEURONTIN 300300 M1 PO (16:50)
[2018-01-04] MEDS ORDERED: CELEXA40 MG PO (16:50)
[2018-01-04 17:30] LABS: MCH 21.7 pg (26.0-34.0); MCHC 29.7 g/dL (28.0-37.0); NUCLEATED RBCS 0 /100WBC; PLATELET COUNT* 352 thou/uL (150-400); RBC 2.46 mil/uL (4.20-5.00); RDW-CV 18.2 % (10.5-14.5); WBC 6.4 thou/uL (4.0-11.0)
[2018-01-04 17:31] LABS: HEMOGLOBIN 5.3 gm/dL (12.0-15.0)
[2018-01-04 17:40] LABS: APTT 28.4 Seconds (25.0-31.3); INR 1.1; PROTIME 11.5 Seconds (9.20-11.50)
[2018-01-04 17:41] LABS: CALCIUM 7.6 mg/dL (8.5-10.1); CREATININE 0.6 mg/dL (0.6-1.3); POTASSIUM 3.2 mmol/L (3.5-5.1)
[2018-01-04 17:45] LABS: ALBUMIN 2.7 g/dL (3.4-5.0); TOTAL BILIRUBIN 0.4 mg/dL (<0.1-1.0); TOTAL PROTEIN 5.5 g/dL (6.4-8.2)
[2018-01-04 18:00] LABS: ABSOLUTE EOSINOPHILS 0.3 thou/uL (0.0-0.7); ABSOLUTE LYMPHOCYTES 1.5 thou/uL (0.8-5.3); ABSOLUTE MONOCYTES 0.4 thou/uL (0.0-1.2); ABSOLUTE NEUTROPHILS 4.2 thou/uL (1.6-8.1); ATYPICAL LYMPHS 5 %; ATYPICAL MONONUCLEARS 4 %; PLATELET ESTIMATE ADEQUATE
[2018-01-04 18:01] LABS: ANISOCYTOSIS 2+; HYPOCHROMASIA 4+; MICROCYTES 3+; POLYCHROMASIA 3+; TEARDROPS 1+
[2018-01-04 18:40] VITALS: BP 132/82
[2018-01-04 18:55] VITALS: BP 122/76
[2018-01-04] MEDS ORDERED: DOXYCYCLINE 10100 MG PO (19:54)
[2018-01-04] MEDS ORDERED: AMBIEN 5 MG TABL5 M1 PO ×2 (19:55→20:11)
[2018-01-04] MEDS ORDERED: CYMBALTA60 MG PO (20:11)
[2018-01-04] MEDS ORDERED: PERCOCET 7.5-31 EACH PO (20:11)
[2018-01-04 20:23] LABS: URINE BILIRUBIN NEGATIVE (Negative); URINE BLOOD NEGATIVE (Negative); URINE CLARITY CLEAR; URINE COLOR YELLOW; URINE GLUCOSE-RANDOM NEGATIVE (Negative); URINE KETONES NEGATIVE (Negative); URINE LEUKOCYTES NEGATIVE (Negative); URINE NITRITE NEGATIVE (Negative); URINE PROTEIN NEGATIVE (Negative); URINE SPECIFIC GRAVITY <= 1.005 (1.005-1.030); URINE UROBILINOGEN 0.2 E.U./dl (0.2-1.0)
[2018-01-04 20:30] LABS: AMP/METHAMP Negative (Negative); BARBITURATES Negative (Negative); BENZODIAZEPINES Negative (Negative); COCAINE Negative (Negative); METHADONE Negative (Negative); OPIATES Negative (Negative); PCP Negative (Negative); THC Negative (Negative)
[2018-01-05] VITALS: BP 102/58
[2018-01-05 04:52] LABS: MCH 21.6 pg (26.0-34.0); MCHC 29.2 g/dL (28.0-37.0); MCV 74.1 fL (80.0-100.0); MPV 7.4 fl. (7.2-11.1); RBC 2.35 mil/uL (4.20-5.00); RDW-CV 17.5 % (10.5-14.5); WBC 5.7 thou/uL (4.0-11.0)
[2018-01-05 05:07] LABS: ALBUMIN 2.4 g/dL (3.4-5.0); CALCIUM 7.7 mg/dL (8.5-10.1); CREATININE 0.6 mg/dL (0.6-1.3); TOTAL BILIRUBIN 0.3 mg/dL (<0.1-1.0)
[2018-01-05 05:09] LABS: HEMATOCRIT 17.4 % (37.0-47.0); HEMOGLOBIN 5.1 gm/dL (12.0-15.0)
[2018-01-05 05:12] LABS: POTASSIUM 4.3 mmol/L (3.5-5.1)
[2018-01-05 07:54] VITALS: BP 85/50
[2018-01-05 12:15] VITALS: BP 91/47
[2018-01-05 13:32] VITALS: BP 100/53; BP 106/68; BP 86/41; BP 92/46; BP 94/55
[2018-01-05 13:39] VITALS: BP 85/50
[2018-01-05 16:00] VITALS: BP 101/70
[2018-01-06] VITALS: BP 114/72
[2018-01-06 08:00] VITALS: BP 119/79
[2018-01-06 10:11] LABS: MCH 22.8 pg (26.0-34.0); MCHC 30.2 g/dL (28.0-37.0); MCV 75.4 fL (80.0-100.0); RBC 2.66 mil/uL (4.20-5.00); RDW-CV 17.6 % (10.5-14.5); WBC 5.9 thou/uL (4.0-11.0)
[2018-01-06 10:18] LABS: CALCIUM 7.6 mg/dL (8.5-10.1); CREATININE 0.7 mg/dL (0.6-1.3)
[2018-01-06 10:19] LABS: HEMOGLOBIN 6.1 gm/dL (12.0-15.0)
[2018-01-06 16:39] VITALS: BP 121/74
[2018-01-06 17:08] LABS: HEPATITIS B SURFACE AG Negative (Negative)
[2018-01-06 19:22] LABS: HEMATOCRIT 20.8 % (37.0-47.0)
[2018-01-06 19:24] LABS: HEMOGLOBIN 6.3 gm/dL (12.0-15.0)
[2018-01-06 21:07] LABS: HIV-1/HIV-2 ANTIBODY Non Reactive (Non Reactive)
[2018-01-06 23:00] VITALS: BP 130/84
[2018-01-06 23:34] VITALS: BP 110/70; BP 113/69; BP 117/78; BP 121/83; BP 130/84
[2018-01-07 06:39] LABS: HEMATOCRIT 25.2 % (37.0-47.0); MCHC 31.8 g/dL (28.0-37.0); MCV 78.7 fL (80.0-100.0); MPV 7.4 fl. (7.2-11.1); RBC 3.2 mil/uL (4.20-5.00); RDW-CV 19.9 % (10.5-14.5); WBC 6.6 thou/uL (4.0-11.0)
[2018-01-07 06:46] LABS: CALCIUM 7.6 mg/dL (8.5-10.1); CREATININE 0.5 mg/dL (0.6-1.3)
[2018-01-07 06:54] LABS: POTASSIUM 2.9 mmol/L (3.5-5.1)
[2018-01-07 08:05] VITALS: BP 111/70
[2018-01-07 09:34] VITALS: BP 130/84
[2018-01-07 13:38] VITALS: BP 102/89
[2018-01-07 16:00] VITALS: BP 113/67
[2018-01-07 20:00] VITALS: BP 126/83
[2018-01-08 05:57] LABS: ABSOLUTE EOSINOPHILS 0.2 thou/uL (0.0-0.7); ABSOLUTE LYMPHOCYTES 2.2 thou/uL (0.8-5.3); ABSOLUTE MONOCYTES 0.8 thou/uL (0.0-1.2); ABSOLUTE NEUTROPHILS 4.7 thou/uL (1.6-8.1); BASOPHILS 0.6 %; EOSINOPHILS 2.9 %; HEMATOCRIT 25.8 % (37.0-47.0); LYMPHOCYTES 27.4 %; MCHC 31.1 g/dL (28.0-37.0); MCV 80.3 fL (80.0-100.0); MONOCYTES 9.7 %; MPV 7.5 fl. (7.2-11.1); NUCLEATED RBCS 0 /100WBC; PLATELET COUNT* 317 thou/uL (150-400); POLYS 59.4 %; RBC 3.21 mil/uL (4.20-5.00); RDW-CV 20.2 % (10.5-14.5); WBC 7.9 thou/uL (4.0-11.0)
[2018-01-08 06:33] LABS: CALCIUM 7.9 mg/dL (8.5-10.1); CREATININE 0.5 mg/dL (0.6-1.3); MAGNESIUM 1.8 mg/dL (1.8-2.4); POTASSIUM 4.5 mmol/L (3.5-5.1)
[2018-01-08 07:33] LABS: PLATELET ESTIMATE ADEQUATE
[2018-01-08 07:34] LABS: ANISOCYTOSIS 1+; MACROCYTES 1+; POIKILOCYTOSIS 1+; POLYCHROMASIA 2+
[2018-01-08 08:45] VITALS: BP 112/79
[2018-01-08] MEDS ORDERED: VITAMIN D1000 UNI1 PO (15:40)
[2018-01-08] MEDS ORDERED: FOLIC ACID1 MG PO (15:43)
[2018-01-08] MEDS ORDERED: B-12500 MC1 PO (15:43)
[2018-01-08 17:19] VITALS: BP 85/50
--- NOTE | 2018-01-11 11:09 | PATH ---
[address] [address] PATHOLOGY RPT PROCEDURE Name: LEATHA JOSEPH Room: [address] IN .R.#: [id number] Admission: 01/04/18 Date of : 67 Discharge: 01/08/18 Report #: [id number] Path Case #: [id number] [facility] Accession Number: [id number] . 01 Material submitted: . PART A: JEJUNAL BIOPSY R/O CELIAC PART B: SIGMOID COLON POLYP . 01 Clinical history: . A: Rule out celiac B: Polyp . 02 Diagnosis: A. Jejunal biopsy: - Normal small intestinal mucosa. . B. Colon, sigmoid colon polyp: - Juvenile polyp with erosions, negative for dysplasia/adenomatous changes. . (NIKOLAS:nevaeh; 01/10/2018) MBBrianna/01/10/2018 . 02 Electronically signed: . Greg Treadwell MD, Pathologist NPI- [id number] . 01 Gross description: . A. The specimen is received in formalin, labeled "Leatha Joseph, jejunal BX rule out celiac", are two irregular fragments of delgado hung soft tissues 0.6 cm and a 0.7 cm in greatest dimension, entirely submitted in A1. . B. The specimen is received in formalin, labeled "Leatha Joseph, sigmoid colon polyp", is a delgado rubbery sessile polyp measuring 0.5 x 0.4 x 0.3 cm, inked black, bisected and entirely submitted in B1. (SWS; 01/09/2018) SHS/SHS . 02 Pathologist provided ICD-10: K63.5, D64.9 . 02 CPT . 081938, 752023 Specimen Comment: A courtesy copy of this report has been sent to Specimen Comment: [phone], , . Specimen Comment: Report sent to ,DR RUELAS / DR KIRK Specimen Comment: A duplicate report has [place] [address] PATHOLOGY RPT PROCEDURE Name: LEATHA JOSEPH Luc Room: [address] IN M.R.#: [id number] Admission: 01/04/18 Date of : 67 Discharge: 01/08/18 Report #: [id number] Path Case #: [id number] updates. Performed at: 01 [facility] [place] [address], [place], [place] [id number] MD Osmel Calderon MD Phone: [phone] Performed at: [address] [facility] [address] [place] [id number] MD Greg Treadwell MD Phone: [phone]
== END 2018-01-08 17:58 | disposition home health service (06) | DRG 563 ==
LOC: M.ERS 16:20 → M.TBA-ER 17:41 → M.3W 18:19 → M.TBA-ER 18:19 → M.2W 18:47 → M.3W 01-05 12:12
PROVIDERS: Internal Medicine Gastroenterology; Nurse Practitioner Family; ADMIT Family Medicine
PROC: 30233N1 Transfusion of Nonautologous Red Blood Cells into Peripheral Vein, Percutaneous Approach (ICD-10-PCS; principal; 2018-01-05)
PROC: 0DBA8ZX Excision of Jejunum, Via Natural or Artificial Opening Endoscopic, Diagnostic (ICD-10-PCS; 2018-01-07)
PROC: 0DBN8ZZ Excision of Sigmoid Colon, Via Natural or Artificial Opening Endoscopic (ICD-10-PCS; 2018-01-07)
PROC: 0DJ08ZZ Inspection of Upper Intestinal Tract, Via Natural or Artificial Opening Endoscopic (ICD-10-PCS; 2018-01-07)
DX: S42.212A Unspecified displaced fracture of surgical neck of left humerus, initial encounter for closed fracture (principal); E44.0 Moderate protein-calorie malnutrition; B37.0 Candidal stomatitis; K57.30 Diverticulosis of large intestine without perforation or abscess without bleeding; D50.9 Iron deficiency anemia, unspecified; E53.8 Deficiency of other specified B group vitamins; F12.90 Cannabis use, unspecified, uncomplicated; G40.909 Epilepsy, unspecified, not intractable, without status epilepticus; F32.9 Major depressive disorder, single episode, unspecified; E87.6 Hypokalemia; Z96.651 Presence of right artificial knee joint; F41.9 Anxiety disorder, unspecified; G47.00 Insomnia, unspecified; R13.10 Dysphagia, unspecified; K64.8 Other hemorrhoids; R00.0 Tachycardia, unspecified; K63.5 Polyp of colon; D12.5 Benign neoplasm of sigmoid colon; Z23 Encounter for immunization; Z90.3 Acquired absence of stomach [part of]; Z82.49 Family history of ischemic heart disease and other diseases of the circulatory system; Z90.49 Acquired absence of other specified parts of digestive tract; Z88.1 Allergy status to other antibiotic agents; Z88.8 Allergy status to other drugs, medicaments and biological substances; Z68.20 Body mass index [BMI] 20.0-20.9, adult; Z98.0 Intestinal bypass and anastomosis status; W05.0XXA Fall from non-moving wheelchair, initial encounter; Y93.89 Activity, other specified; Y92.89 Other specified places as the place of occurrence of the external cause; Y99.8 Other external cause status

== ENCOUNTER → 2018-01-17 | Outpatient (CLI) | payer OTHER ==
[~2018-01-17] MED LIST changes: +B-12500 MC1 PO; +CYMBALTA60 MG PO; +DOXYCYCLINE 10100 MG PO; +FOLIC ACID1 MG PO; +PERCOCET 7.5-31 EACH PO; +VITAMIN D1000 UNI1 PO
== END ==
LOC: M.ULTRA 16:00
DX: M79.89 Other specified soft tissue disorders (principal); M79.662 Pain in left lower leg

== ENCOUNTER → 2018-01-23 | Outpatient (CLI) | payer OTHER ==
[2018-01-23 16:59] LABS: HEMATOCRIT 37.6 % (37.0-47.0); HEMOGLOBIN 11.9 gm/dL (12.0-15.0); MCH 27.9 pg (26.0-34.0); MCHC 31.7 g/dL (28.0-37.0); MCV 88.2 fL (80.0-100.0); MPV 7.4 fl. (7.2-11.1); RBC 4.26 mil/uL (4.20-5.00); RDW-CV 31.2 % (10.5-14.5); WBC 6.1 thou/uL (4.0-11.0)
[2018-01-23 17:12] LABS: CALCIUM 8.5 mg/dL (8.5-10.1); CREATININE 0.6 mg/dL (0.6-1.3); POTASSIUM 3.9 mmol/L (3.5-5.1); TOTAL BILIRUBIN 0.3 mg/dL (<0.1-1.0); TOTAL PROTEIN 6.5 g/dL (6.4-8.2)
[2018-01-23 17:26] LABS: % SATURATION 24 % (20-39); IRON 48 ug/dL (50-175)
== END ==
LOC: M.LAB 16:36
PROVIDERS: Family Medicine
DX: D50.9 Iron deficiency anemia, unspecified (principal)

== ENCOUNTER → 2018-02-03 | Outpatient (CLI) | payer OTHER | LOC: M.CT 07:11 | DX: K76.0 Fatty (change of) liver, not elsewhere classified (principal); K63.9 Disease of intestine, unspecified; Z90.3 Acquired absence of stomach [part of]; Z90.49 Acquired absence of other specified parts of digestive tract; Z90.710 Acquired absence of both cervix and uterus ==

== ENCOUNTER → 2018-02-22 | Outpatient (CLI) | payer OTHER | LOC: M.MRI 02-20 13:30 | DX: M75.102 Unspecified rotator cuff tear or rupture of left shoulder, not specified as traumatic (principal); S43.492A Other sprain of left shoulder joint, initial encounter; S46.212A Strain of muscle, fascia and tendon of other parts of biceps, left arm, initial encounter; X58.XXXA Exposure to other specified factors, initial encounter; Y93.89 Activity, other specified; Y92.89 Other specified places as the place of occurrence of the external cause; Y99.8 Other external cause status ==

== ENCOUNTER 2018-05-15 01:32 | Inpatient (IN) | payer OTHER ==
[~2018-05-15] VITALS: Ht 162.6 cm; Wt 54.0 kg
[2018-05-15 01:35] VITALS: BP 142/76
[2018-05-15 02:20] LABS: URINE BILIRUBIN NEGATIVE (Negative); URINE BLOOD 1+ (Negative); URINE CLARITY CLEAR; URINE COLOR YELLOW; URINE GLUCOSE-RANDOM NEGATIVE (Negative); URINE KETONES NEGATIVE (Negative); URINE LEUKOCYTES-REFLEX NEGATIVE (Negative); URINE NITRITE-REFLEX NEGATIVE (Negative); URINE PROTEIN NEGATIVE (Negative); URINE SPECIFIC GRAVITY 1.015 (1.005-1.030); URINE UROBILINOGEN 0.2 E.U./dl (0.2-1.0)
[2018-05-15 02:36] LABS: BACTERIA-REFLEX None Seen /HPF (None Seen); CASTS None Seen /LPF (None Seen); CRYSTALS None Seen /LPF (None Seen); SQUAMOUS NONE SEEN /LPF (0-3); URINE RBC None Seen /HPF (0-2); URINE WBC-REFLEX 0-5 Rare /HPF (0-5)
[2018-05-15 08:10] VITALS: BP 107/74
[2018-05-15 08:40] VITALS: BP 113/70
--- NOTE | 2018-05-15 08:40 | NUR ---
ADMIT NOTE - PT ADMITTED TO [facility] VIA ER VIA CART. PT ABLE TO TRANSFER FROM CART. 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 WILL CONTINUE TO MONITOR.
[2018-05-15 10:07] LABS: ABSOLUTE EOSINOPHILS 0.2 thou/uL (0.0-0.7); ABSOLUTE LYMPHOCYTES 1.9 thou/uL (0.8-5.3); ABSOLUTE MONOCYTES 0.3 thou/uL (0.0-1.2); ABSOLUTE NEUTROPHILS 3.7 thou/uL (1.6-8.1); BASOPHILS 0.8 %; EOSINOPHILS 3.2 %; HEMATOCRIT 36.5 % (37.0-47.0); HEMOGLOBIN 11.8 gm/dL (12.0-15.0); LYMPHOCYTES 31.4 %; MCH 33.9 pg (26.0-34.0); MCHC 32.3 g/dL (28.0-37.0); MCV 104.8 fL (80.0-100.0); MONOCYTES 5.3 %; MPV 7.5 fl. (7.2-11.1); NUCLEATED RBCS 0 /100WBC; PLATELET COUNT* 415 thou/uL (150-400); POLYS 59.3 %; RBC 3.48 mil/uL (4.20-5.00); RDW-CV 13.7 % (10.5-14.5); WBC 6.2 thou/uL (4.0-11.0)
[2018-05-15 10:17] LABS: CALCIUM 8.4 mg/dL (8.5-10.1); CREATININE 0.6 mg/dL (0.6-1.3); POTASSIUM 3.5 mmol/L (3.5-5.1); TOTAL BILIRUBIN 0.2 mg/dL (<0.1-1.0); TOTAL PROTEIN 6.5 g/dL (6.4-8.2)
[2018-05-15 11:09] VITALS: BP 113/70
[2018-05-15] MEDS ORDERED: AUGMENTIN 875-1 EACH PO (11:18)
--- NOTE | 2018-05-15 13:13 | EKG ---
[place] [address] ELECTROCARDIOGRAM REPORT Name: STACEYSherylTONY LYNN Room: [address] ADM IN .R.#: [id number] Admission: 05/15/18 Attend Phys: Yisel Page MD Discharge: Date of : 67 Report #: [id number] THIS REPORT FOR: //name// [facility] ED Test Date: 2018-05-15 Test Time: 01:47:24 Pat Name: TONY MEDINA Department: Room: [address] Gender: F Assistant To The Dean: HERIBERTO : 1965 Requested By: Latesha Cortez Order Number: [id number] Reading MD: Fernando Villavicencio Measurements Intervals [place] Rate: 77 P: 57 [place]: 156 QRS: 58 QRSD: 82 T: 61 QT: 366 QTc: 415 Interpretive Statements Sinus rhythm Atrial premature complex Abnormal R-wave progression, early transition Compared to ECG 10/19/2017 12:26:59 Atrial premature complex(es) now present Sinus tachycardia no longer present T-wave abnormality no longer present Electronically Signed On 05-15-2018 13:12:48 CDT by Fernando Villavicencio [email or web address] <ELECTRONICALLY SIGNED> By: Fernando Villavicencio MD, [facility] 05/15/18 1312 0147 0147 Fernando Villavicencio MD, [facility] /EPI
[2018-05-15 15:58] VITALS: BP 113/70
--- NOTE | 2018-05-15 15:59 | NUR ---
SW met with pt to discuss dc planning; HH PT recommended. Pt preference for [facility] . SW called and spoke with intake of [facility] and then faxed referral and order information. [facility] [phone] fax [phone]. Pt did not have any resources or options for transportation home today. SW provided cab voucher to nursing and pathology secretary/transcriptionist to arrange. Pt did not express any other dc needs or concerns.
[2018-05-15 16:00] VITALS: BP 115/72
--- NOTE | 2018-05-15 17:54 | NUR ---
DISCHARGE NOTE - OK TO DISCHARGE PER ORTH. PORT-A-CATH DEACCESSED PER PROTOCOL. NO QUESTIONS ABOUT DISCHARGE INSTRUCTIONS. RX'S GIVEN.
--- NOTE | 2018-05-16 10:07 | NUR ---
SW received message this morning that [facility] denied referral after all stating that they had a cap on pt insurance in pt living area. SHAAN called pt other preference of [facility] and spoke with Christine in admissions. [facility] unable to accept due to pt not appropriate for HH due to drug and alcohol abuse would be more appropriate for drug and alcohol rehab according to [facility] services.
== END 2018-05-15 17:50 | disposition home health service (06) | DRG 580 ==
LOC: M.ERS 01:32 → M.TBA-ER 04:06 → M.3W 04:06
PROVIDERS: Emergency Medicine; Internal Medicine; ADMIT Internal Medicine
PROC: 0JQP0ZZ Repair Left Lower Leg Subcutaneous Tissue and Fascia, Open Approach (ICD-10-PCS; principal; 2018-05-15)
PROC: 2W3RX1Z Immobilization of Left Lower Leg using Splint (ICD-10-PCS; 2018-05-15)
DX: S91.012A Laceration without foreign body, left ankle, initial encounter (principal); E44.1 Mild protein-calorie malnutrition; G89.29 Other chronic pain; W01.0XXA Fall on same level from slipping, tripping and stumbling without subsequent striking against object, initial encounter; S40.011A Contusion of right shoulder, initial encounter; Z89.611 Acquired absence of right leg above knee; Y93.89 Activity, other specified; Y92.89 Other specified places as the place of occurrence of the external cause; Y99.8 Other external cause status; Z88.8 Allergy status to other drugs, medicaments and biological substances; Z88.1 Allergy status to other antibiotic agents; Z91.040 Latex allergy status; Z98.891 History of uterine scar from previous surgery; Z90.49 Acquired absence of other specified parts of digestive tract; Z98.84 Bariatric surgery status; Z82.49 Family history of ischemic heart disease and other diseases of the circulatory system; Z87.440 Personal history of urinary (tract) infections

== ENCOUNTER → 2018-06-15 | Outpatient (CLI) | payer OTHER ==
[~2018-06-15] MED LIST changes: +AUGMENTIN 875-1 EACH PO
== END ==
LOC: M.WC 09:55
DX: T81.31XD Disruption of external operation (surgical) wound, not elsewhere classified, subsequent encounter (principal); M19.90 Unspecified osteoarthritis, unspecified site; F11.20 Opioid dependence, uncomplicated; F41.9 Anxiety disorder, unspecified; Z89.611 Acquired absence of right leg above knee; Y83.8 Other surgical procedures as the cause of abnormal reaction of the patient, or of later complication, without mention of misadventure at the time of the procedure

== ENCOUNTER → 2018-06-22 | Outpatient (CLI) | payer OTHER | LOC: M.WC 04:55 | DX: T81.31XD Disruption of external operation (surgical) wound, not elsewhere classified, subsequent encounter (principal); M19.90 Unspecified osteoarthritis, unspecified site; F11.20 Opioid dependence, uncomplicated; F41.9 Anxiety disorder, unspecified; Z89.611 Acquired absence of right leg above knee; Y83.8 Other surgical procedures as the cause of abnormal reaction of the patient, or of later complication, without mention of misadventure at the time of the procedure ==

== ENCOUNTER → 2018-07-07 | Outpatient (CLI) | payer OTHER ==
[~2018-07-07] MED LIST changes: +MULTIPLE VITAM1 EAC2 PO; +TUMS PO
== END ==
LOC: M.MRI 04-28 14:30 → M.CRD 05-17 12:30 → M.MRI 05-17 13:30 → M.CRD 05-29 11:00 → M.MRI 08:30 → M.CRD 07-10 11:00
DX: S43.432A Superior glenoid labrum lesion of left shoulder, initial encounter (principal); M75.102 Unspecified rotator cuff tear or rupture of left shoulder, not specified as traumatic; M19.012 Primary osteoarthritis, left shoulder; M25.412 Effusion, left shoulder; X58.XXXA Exposure to other specified factors, initial encounter; Y93.89 Activity, other specified; Y92.89 Other specified places as the place of occurrence of the external cause; Y99.8 Other external cause status

== ENCOUNTER 2018-07-31 06:16 | Inpatient (IN) | payer OTHER ==
[~2018-07-31] VITALS: Ht 162.6 cm; Wt 64.9 kg
--- NOTE | ~2018-07-31 | OP ---
[address] [address] OPERATIVE REPORT Name: TONY MEDINA Room: [address] IN [facility]#: [id number] Admission: 08/01/18 Attend Phys: Fernando Valdez DO Discharge: 08/02/18 Date of : 67 Report #: [id number] THIS REPORT FOR: //name// [facility] BY: RESIDENT [place] DO DATE OF SERVICE: 08/01/2018 PREOPERATIVE DIAGNOSIS: Recurrent massive rotator cuff tear, left shoulder, irreparable. POSTOPERATIVE DIAGNOSIS: Recurrent massive rotator cuff tear, left shoulder, irreparable. PROCEDURE: Left shoulder arthroscopy with superior capsular reconstruction utilizing Arthrex FlexiGRAFT. SURGEON: Fernando Valdez DO. ELECTRICIAN UNDERGROUND: James Young DO ANESTHESIA: General with interscalene block. COMPLICATIONS: None. DRAINS: None. SPECIMEN REMOVED: None. CONDITION OF PATIENT: Stable to PACU. INDICATIONS: The patient is a pleasant 52-year-old female, well known to our clinic with a chronic history of right shoulder pain. She has recurrent falls and unfortunately has had two previous rotator cuff repairs that have failed. She again has a large rotator cuff tear with retraction on repeat MRI. This pain is debilitating and interfering with her quality of life. I discussed again the potential benefit of left shoulder arthroscopy with possible superior capsular reconstruction. Her only other option at this point would be potentially reverse shoulder arthroplasty; however, she is quite young still for this. I discussed procedure, risks, benefits, complications and indications in detail with her. Risks discussed include but not limited to infection, neurovascular injury, again recurrent tear, posttraumatic arthritis, need for further surgery, no improvement in symptoms, DVT, PE, and/or anesthesia complications. She did express understanding [place] [address] OPERATIVE REPORT Name: TONY MEDINA Room: [address]#: [id number] Admission: 08/01/18 Attend Phys: Fernando Valdez, Discharge: 08/02/18 Date of : 67 Report #: [id number] surgery. DESCRIPTION OF PROCEDURE: After consent was obtained, the patient was taken to the operative suite and placed in supine position on operating room table. She was given benefit of general anesthesia. She was then placed in the beach chair position and all bony prominences were well padded. Left upper extremity was sterilely prepped and draped in usual fashion. Preop timeout was obtained to confirm the correct patient, procedure and operative site. Surgery began with standard posterolateral portal incision, arthroscope was introduced in the posterolateral portal and diagnostic arthroscopy was performed noting the above findings. She had essentially no rotator cuff left, mainly only scar tissue. The remnant rotator cuff was retracted past the level of the glenoid. No repairable tissue. At this point, an anterior portal was established as well as the lateral portal. The shoulder was debrided of a previous suture and any scarring. She also had some degenerative tearing of the labrum. At this point, I elected to proceed with superior capsular reconstruction. Percutaneously, I placed 3 anchors at the 10 o'clock, 12 o'clock and 2 o'clock positions of the glenoid. These were Arthrex knotless SutureTak anchors. These did all have good purchase. Once these were passed, we moved to our medial row anchors and 2 Arthrex SwiveLocks were placed just off the articular surface, also had good purchase. At this point, we used the Arthrex measurement tool and measured distances between the anterior and posterior medial anchors as well as the distance between the glenoid anchors. These were recorded. We then took our graft and measured out these dimensions allowing for some extra space, approximately 5 mm around the graft. The graft was then cut. The SwiveLock sutures were then passed in the appropriate position on the graft. We then used the scorpion to pass the glenoid anchor sutures in a mattress fashion in appropriate position. Once this was confirmed in good place, the repair sutures of the glenoid were shuttled as the graft was gently advanced into the wound. Extreme detail was taken for suture management to prevent any nodding of the sutures. A Gerry was used to advance the graft through the lateral PassPort cannula. The graft was then advanced to appropriate position of the glenoid utilizing again the previous sutures. This did have good purchase. The medial graft actually did lay down on the glenoid quite nicely. At this point, I went ahead and made an open incision as there was some excess graft laterally. The graft was reached to her previous open incision. Blunt dissection was taken down to the level of the glenohumeral joint. We then slightly trimmed the corners of the graft and placed. We then cut the sutures of our SpeedBridge, crisscrossed them, and 2 lateral row anchors were placed, both had good purchase also. The arm was then taken through gentle range of motion and she had good stability and good resistance to superior translation of the humeral head on the glenoid. There was really no cuff to repair to anterior superiorly at this point and felt it was much more stable compared to her previous anatomy. I then debrided the joint with the shaver. The camera was reintroduced to confirm good position of the graft and again good [facility] [address] [place] [address] OPERATIVE REPORT Name: TONY MEDINA Room: [address] IN ..#: [id number] Admission: 08/01/18 Attend Phys: Fernando Valdez DO Discharge: 08/02/18 Date of : 67 Report #: [id number] stability. The wound was then thoroughly irrigated with sterile saline. Final pictures were taken. The incision was then closed with a 2-0 Vicryl in an inverted interrupted fashion followed by nylon stitch on the skin. Sterile dressing was applied. She tolerated the procedure well without complications. She was transferred to the recovery room in stable condition. All needle and sponge counts were correct x 2 at the end of the procedure. By: [id number] Gaudencio Valdez DO /sebastien
--- NOTE | ~2018-07-31 | H ---
[address] [address] HISTORY AND PHYSICAL Name: TONY MEDINA Room: [address] IN [facility].#: [id number] Admission: 08/01/18 Attend Phys: Fernando Valdez DO Discharge: 08/02/18 Date of : 67 Report #: [id number] THIS REPORT FOR: //name// Please refer to the History and Physical performed in the physician's office. By: [id number] Records Staff TARA /JAN
[2018-07-31 07:01] LABS: HEMATOCRIT 31.3 % (37.0-47.0); HEMOGLOBIN 10.2 gm/dL (12.0-15.0); MCHC 32.7 g/dL (28.0-37.0); MCV 103.9 fL (80.0-100.0); RBC 3.01 mil/uL (4.20-5.00); RDW-CV 16.1 % (10.5-14.5)
[2018-07-31 07:09] LABS: CREATININE 0.5 mg/dL (0.6-1.3)
[2018-07-31 07:12] LABS: ALBUMIN 2.8 g/dL (3.4-5.0); TOTAL BILIRUBIN 0.3 mg/dL (<0.1-1.0); TOTAL PROTEIN 5.9 g/dL (6.4-8.2)
[2018-07-31 12:50] VITALS: BP 112/69
[2018-07-31 17:30] VITALS: BP 110/69
[2018-07-31 20:00] VITALS: BP 116/73
[2018-08-01] VITALS (7 sets, daily range): BP systolic 100–121; BP diastolic 54–76
[2018-08-01] MEDS ORDERED: ASPIRIN325 PO (13:13)
[2018-08-01 14:16] LABS: URINE BILIRUBIN NEGATIVE (Negative); URINE BLOOD NEGATIVE (Negative); URINE CLARITY CLEAR; URINE COLOR YELLOW; URINE GLUCOSE-RANDOM NEGATIVE (Negative); URINE KETONES NEGATIVE (Negative); URINE LEUKOCYTES-REFLEX TRACE (Negative); URINE NITRITE-REFLEX NEGATIVE (Negative); URINE PROTEIN NEGATIVE (Negative); URINE UROBILINOGEN 0.2 E.U./dl (0.2-1.0)
[2018-08-01 14:29] LABS: BACTERIA-REFLEX None Seen /HPF (None Seen); CASTS None Seen /LPF (None Seen); CRYSTALS None Seen /LPF (None Seen); SQUAMOUS NONE SEEN /LPF (0-3); URINE RBC None Seen /HPF (0-2); URINE WBC-REFLEX 0-5 Rare /HPF (0-5)
[2018-08-02 08:10] VITALS: BP 94/60
== END 2018-08-02 15:50 | disposition home health service (06) | DRG 501 ==
LOC: M.SUR 06:16 → M.TBA 11:34 → M.ORTHSURG 11:34 → M.SUR 14:08 → M.ORTHSURG 08-01 13:25
PROVIDERS: Internal Medicine; ADMIT Orthopaedic Surgery
PROC: 0LU24JZ Supplement Left Shoulder Tendon with Synthetic Substitute, Percutaneous Endoscopic Approach (ICD-10-PCS; principal; 2018-08-01)
DX: M75.102 Unspecified rotator cuff tear or rupture of left shoulder, not specified as traumatic (principal); E44.0 Moderate protein-calorie malnutrition; F11.20 Opioid dependence, uncomplicated; G40.909 Epilepsy, unspecified, not intractable, without status epilepticus; M15.9 Polyosteoarthritis, unspecified; G89.29 Other chronic pain; Z96.659 Presence of unspecified artificial knee joint; G54.7 Phantom limb syndrome without pain; Z88.1 Allergy status to other antibiotic agents; Z88.8 Allergy status to other drugs, medicaments and biological substances; Z91.048 Other nonmedicinal substance allergy status; Z68.24 Body mass index [BMI] 24.0-24.9, adult; Z90.49 Acquired absence of other specified parts of digestive tract; Z89.611 Acquired absence of right leg above knee; Z98.84 Bariatric surgery status; Z82.49 Family history of ischemic heart disease and other diseases of the circulatory system

== ENCOUNTER 2018-08-23 15:15 | Emergency (ER) | payer OTHER ==
[~2018-08-23] VITALS: Ht 162.6 cm; Wt 56.7 kg
[~2018-08-23 15:15] MED LIST changes: +ASPIRIN325 PO
[2018-08-23 15:35] LABS: ABSOLUTE BASOPHILS 0.1 thou/uL (0.0-0.2); ABSOLUTE EOSINOPHILS 0.2 thou/uL (0.0-0.7); ABSOLUTE LYMPHOCYTES 2.6 thou/uL (0.8-5.3); ABSOLUTE MONOCYTES 0.6 thou/uL (0.0-1.2); ABSOLUTE NEUTROPHILS 5.2 thou/uL (1.6-8.1); BASOPHILS 0.8 %; EOSINOPHILS 2.3 %; HEMATOCRIT 37.2 % (37.0-47.0); HEMOGLOBIN 11.6 gm/dL (12.0-15.0); LYMPHOCYTES 29.3 %; MCH 31.2 pg (26.0-34.0); MCHC 31.3 g/dL (28.0-37.0); MCV 99.6 fL (80.0-100.0); MONOCYTES 7.4 %; MPV 7.3 fl. (7.2-11.1); NUCLEATED RBCS 0 /100WBC; PLATELET COUNT* 501 thou/uL (150-400); POLYS 60.2 %; RBC 3.73 mil/uL (4.20-5.00); RDW-CV 14.6 % (10.5-14.5); WBC 8.7 thou/uL (4.0-11.0)
[2018-08-23 15:43] LABS: APTT 30.3 Seconds (25.0-31.3); PROTIME 10.7 Seconds (9.20-11.50)
[2018-08-23] MEDS ORDERED: ROXICODONE5 M2 PO (15:43)
[2018-08-23 15:45] LABS: ANION GAP 1 mmol/L (7-16); BUN 19 mg/dL (7-18); CALCIUM 8.3 mg/dL (8.5-10.1); CHLORIDE 105 mmol/L (98-107); CO2 34 mmol/L (21-32); CREATININE 0.7 mg/dL (0.6-1.3); GLUCOSE 94 mg/dL (70-99); POTASSIUM 4.8 mmol/L (3.5-5.1); SODIUM 140 mmol/L (136-145)
[2018-08-23 16:01] LABS: ALBUMIN 2.6 g/dL (3.4-5.0); ALKALINE PHOSPHATASE 187 U/L (46-116); CK-MB MASS 1.5 ng/mL (<0.5-3.6); NT-PRO BRAIN NAT PEPTIDE 78 pg/mL (<300); SGOT 28 U/L (15-37); SGPT 42 U/L (30-65); TOTAL BILIRUBIN 0.2 mg/dL (<0.1-1.0); TOTAL PROTEIN 6.2 g/dL (6.4-8.2); TROPONIN-I LEVEL <0.06 ng/mL (<0.06)
[2018-08-23 16:55] VITALS: BP 96/67
--- NOTE | 2018-08-24 16:26 | EKG ---
[place] [address] ELECTROCARDIOGRAM REPORT Name: FLORENCETONY GRACEN Room: [facility]#: [id number] Admission: 08/23/18 Attend Phys: Discharge: 08/23/18 Date of : 67 Report #: [id number] THIS REPORT FOR: //name// [facility] ED Test Date: 2018-08-23 Test Time: 15:27:45 Pat Name: TONY MEDINA Department: Room: Gender: F Bow Maker Machine Tender: : 1965 Requested By: Reji Medel Order Number: [id number] MD: Bob Chester Measurements Intervals [place] Rate: 114 P: 79 AL: 132 QRS: 79 QRSD: 78 T: 44 QT: 322 QTc: 444 Interpretive Statements Sinus tachycardia Compared to ECG 05/15/2018 01:47:24 Sinus rhythm no longer present Atrial premature complex(es) no longer present Electronically Signed On 08-24-2018 16:25:51 CDT by Bob Chester [email or web address] <ELECTRONICALLY SIGNED> By: Bob Chester MD, [facility] 08/24/18 1625 1527 1527 Bob Chester MD, [facility] /EPI
== END 2018-08-23 16:55 | disposition home or self-care (01) ==
LOC: M.ERS 15:15
PROVIDERS: Family Medicine
DX: T40.601A Poisoning by unspecified narcotics, accidental (unintentional), initial encounter (principal); Y92.9 Unspecified place or not applicable; R41.82 Altered mental status, unspecified; Z98.84 Bariatric surgery status; Z90.49 Acquired absence of other specified parts of digestive tract; Z88.1 Allergy status to other antibiotic agents; Z88.5 Allergy status to narcotic agent

== ENCOUNTER 2018-11-10 12:27 | Emergency (ER) | payer OTHER ==
[~2018-11-10] VITALS: Ht 162.6 cm; Wt 63.5 kg
[~2018-11-10 12:27] MED LIST changes: +ROXICODONE5 M2 PO
[2018-11-10 13:05] LABS: ABSOLUTE EOSINOPHILS 0.1 thou/uL (0.0-0.7); ABSOLUTE LYMPHOCYTES 1.4 thou/uL (0.8-5.3); ABSOLUTE MONOCYTES 0.4 thou/uL (0.0-1.2); ABSOLUTE NEUTROPHILS 1.9 thou/uL (1.6-8.1); EOSINOPHILS 3.5 %; HEMATOCRIT 31.9 % (37.0-47.0); HEMOGLOBIN 10.5 gm/dL (12.0-15.0); LYMPHOCYTES 36.2 %; MCH 30.6 pg (26.0-34.0); MCHC 32.8 g/dL (28.0-37.0); MCV 93.3 fL (80.0-100.0); MONOCYTES 9.8 %; MPV 7.5 fl. (7.2-11.1); NUCLEATED RBCS 0 /100WBC; PLATELET COUNT* 358 thou/uL (150-400); POLYS 49.5 %; RBC 3.42 mil/uL (4.20-5.00); RDW-CV 17.3 % (10.5-14.5); WBC 3.8 thou/uL (4.0-11.0)
[2018-11-10 13:12] LABS: CREATININE 0.6 mg/dL (0.6-1.3)
[2018-11-10 13:17] LABS: ALBUMIN 2.4 g/dL (3.4-5.0); TOTAL BILIRUBIN 0.4 mg/dL (<0.1-1.0); TOTAL PROTEIN 5.3 g/dL (6.4-8.2)
[2018-11-10 14:02] LABS: URINE BILIRUBIN NEGATIVE (Negative); URINE BLOOD NEGATIVE (Negative); URINE CLARITY CLEAR; URINE COLOR YELLOW; URINE GLUCOSE-RANDOM NEGATIVE (Negative); URINE KETONES TRACE (Negative); URINE LEUKOCYTES-REFLEX NEGATIVE (Negative); URINE NITRITE-REFLEX NEGATIVE (Negative); URINE PROTEIN NEGATIVE (Negative); URINE UROBILINOGEN 0.2 E.U./dl (0.2-1.0)
[2018-11-10 14:10] LABS: AMP/METHAMP Negative (Negative); BARBITURATES Negative (Negative); BENZODIAZEPINES Negative (Negative); COCAINE Negative (Negative); METHADONE Negative (Negative); OPIATES POSITIVE (Negative); PCP Negative (Negative); THC Negative (Negative)
[2018-11-10 15:15] VITALS: BP 130/80
--- NOTE | 2018-11-11 12:45 | EKG ---
[place] [address] ELECTROCARDIOGRAM REPORT Name: FLORENCELESLYTONY RAMOSN Room: [facility]#: [id number] Admission: 11/10/18 Attend Phys: Discharge: 11/10/18 Date of : 67 Report #: [id number] THIS REPORT FOR: //name// [facility] ED Test Date: 2018-11-10 Test Time: 12:49:37 Pat Name: TONY MEDINA Department: Room: Gender: F Ring Sorter: GARCIA : 1965 Requested By: Alee Carmona Order Number: [id number] Micky MD: Bob Chester Measurements Intervals [place] Rate: 103 P: 67 MD: 145 QRS: 76 QRSD: 82 T: 31 QT: 350 QTc: 458 Interpretive Statements Sinus tachycardia Low voltage, precordial leads Borderline T abnormalities, anterior leads Compared to ECG 08/23/2018 15:27:45 Low QRS voltage now present T-wave abnormality now present Electronically Signed On 11-11-2018 12:44:50 CDT by Bob Chester [email or web address] <ELECTRONICALLY SIGNED> By: Bob Chester MD, FACC 11/11/18 1244 1249 1249 Bob Chester MD, FAC /EPI
== END 2018-11-10 15:17 | disposition home or self-care (01) ==
LOC: M.ERS 12:27
PROVIDERS: Nurse Practitioner
DX: R53.83 Other fatigue (principal); Z79.899 Other long term (current) drug therapy; Z91.048 Other nonmedicinal substance allergy status; Z88.8 Allergy status to other drugs, medicaments and biological substances; Z88.1 Allergy status to other antibiotic agents; Z90.49 Acquired absence of other specified parts of digestive tract; Z98.890 Other specified postprocedural states

== ENCOUNTER 2019-01-14 10:23 | Emergency (ER) | payer OTHER ==
[~2019-01-14] VITALS: Ht 162.6 cm; Wt 49.9 kg
[2019-01-14 11:03] LABS: ABSOLUTE LYMPHOCYTES 1.5 thou/uL (0.8-5.3); ABSOLUTE MONOCYTES 0.3 thou/uL (0.0-1.2); ABSOLUTE NEUTROPHILS 1.6 thou/uL (1.6-8.1); EOSINOPHILS 0.9 %; HEMATOCRIT 27.7 % (37.0-47.0); LYMPHOCYTES 43.8 %; MCH 29.6 pg (26.0-34.0); MCHC 32.4 g/dL (28.0-37.0); MCV 91.3 fL (80.0-100.0); MONOCYTES 8.3 %; MPV 7.3 fl. (7.2-11.1); NUCLEATED RBCS 0 /100WBC; PLATELET COUNT* 409 thou/uL (150-400); RBC 3.03 mil/uL (4.20-5.00); RDW-CV 15.9 % (10.5-14.5); WBC 3.4 thou/uL (4.0-11.0)
[2019-01-14 11:17] LABS: ALBUMIN 2.5 g/dL (3.4-5.0); CALCIUM 7.9 mg/dL (8.5-10.1); CREATININE 0.6 mg/dL (0.6-1.3); TOTAL BILIRUBIN 0.5 mg/dL (<0.1-1.0); TOTAL PROTEIN 5.6 g/dL (6.4-8.2)
[2019-01-14 11:18] LABS: POTASSIUM 2.7 mmol/L (3.5-5.1)
[2019-01-14 11:28] LABS: ACETAMINOPHEN < 2 ug/mL (10-30)
[2019-01-14 11:29] LABS: ALCOHOL < 10 mg/dL (<10)
[2019-01-14] MEDS ORDERED: IRON325 PO (13:21)
[2019-01-14] MEDS ORDERED: POTASSIUM20 PO (13:21)
[2019-01-14 13:30] VITALS: BP 139/88
--- NOTE | 2019-01-15 10:48 | EKG ---
[place] [address] ELECTROCARDIOGRAM REPORT Name: TONY MEDINAN Room: [facility]#: [id number] Admission: 01/14/19 Attend Phys: Discharge: 01/14/19 Date of : 67 Report #: [id number] THIS REPORT FOR: //name// [facility] ED Test Date: 2019-01-14 Test Time: 10:49:51 Pat Name: TONY MEDINA Department: Room: Gender: F Supervisor Of Operations: : 1965 Requested By: Reji Medel Order Number: [id number] MD: Fernando Villavicencio Measurements Intervals [place] Rate: 100 P: 75 NE: 151 QRS: 76 QRSD: 76 T: 62 QT: 385 QTc: 497 Interpretive Statements Sinus tachycardia Low voltage, precordial leads Borderline T abnormalities, anterior leads Borderline prolonged QT interval Baseline wander in lead(s) V3 Compared to ECG 11/10/2018 12:49:37 No significant changes Electronically Signed On 01-15-2019 10:47:41 COMMISSIONS MANAGER by Fernando Villavicencio [email or web address] <ELECTRONICALLY SIGNED> By: Fernando Villavicencio MD, [facility] 01/15/19 1047 1049 1049 Fernando Villavicencio MD, [facility] /EPI
== END 2019-01-14 13:32 | disposition home or self-care (01) ==
LOC: M.ERS 10:23
PROVIDERS: Family Medicine
DX: R41.82 Altered mental status, unspecified (principal); E87.6 Hypokalemia; D64.9 Anemia, unspecified; Z91.048 Other nonmedicinal substance allergy status; Z98.890 Other specified postprocedural states; Z90.49 Acquired absence of other specified parts of digestive tract; Z88.1 Allergy status to other antibiotic agents; Z88.6 Allergy status to analgesic agent

== ENCOUNTER 2019-03-11 12:22 | Inpatient (IN) | payer OTHER ==
[~2019-03-11] VITALS: Ht 137.2 cm; Wt 44.0 kg
[2019-03-11 12:22] VITALS: BP 120/57
[~2019-03-11 12:22] MED LIST changes: +POTASSIUM20 PO
[2019-03-11 13:14] LABS: ABSOLUTE MONOCYTES 0.2 thou/uL (0.0-1.2); ABSOLUTE NEUTROPHILS 3.1 thou/uL (1.6-8.1); BASOPHILS 0.5 %; HEMOGLOBIN 9.8 gm/dL (12.0-15.0); LYMPHOCYTES 23.3 %; MCH 32.5 pg (26.0-34.0); MCHC 33.7 g/dL (28.0-37.0); MCV 96.4 fL (80.0-100.0); MPV 7.7 fl. (7.2-11.1); NUCLEATED RBCS 0 /100WBC; PLATELET COUNT* 299 thou/uL (150-400); POLYS 72.2 %; RBC 3.01 mil/uL (4.20-5.00); RDW-CV 17.4 % (10.5-14.5); WBC 4.3 thou/uL (4.0-11.0)
[2019-03-11 13:17] LABS: URINE BLOOD 1+ (Negative); URINE CLARITY CLEAR; URINE COLOR YELLOW; URINE GLUCOSE-RANDOM TRACE (Negative); URINE KETONES 1+ (Negative); URINE LEUKOCYTES-REFLEX TRACE (Negative); URINE NITRITE-REFLEX NEGATIVE (Negative); URINE PROTEIN TRACE (Negative); URINE SPECIFIC GRAVITY 1.025 (1.005-1.030)
[2019-03-11 13:18] LABS: URINE BILIRUBIN 2+ (Negative)
[2019-03-11 13:19] LABS: ICTOTEST (BILI CONFIRMATORY) Positive (Negative)
[2019-03-11 13:25] LABS: APTT 27.3 Seconds (25.0-31.3); CALCIUM 7.6 mg/dL (8.5-10.1); CREATININE 0.7 mg/dL (0.6-1.3); INR 1.2; PROTIME 12.6 Seconds (9.20-11.50)
[2019-03-11 13:26] LABS: POTASSIUM 2.9 mmol/L (3.5-5.1)
[2019-03-11 13:26] LABS: CASTS None Seen /LPF (None Seen); CRYSTALS None Seen /LPF (None Seen); SQUAMOUS 0-3 Few /LPF (0-3); URINE RBC 3-10 Few /HPF (0-2); URINE WBC-REFLEX 6-15 Few /HPF (0-5)
[2019-03-11 13:39] LABS: ALBUMIN 2.3 g/dL (3.4-5.0); CK-MB MASS 2.6 ng/mL (<0.5-3.6); TOTAL BILIRUBIN 1.9 mg/dL (<0.1-1.0); TOTAL PROTEIN 5.2 g/dL (6.4-8.2)
[2019-03-11 15:59] LABS: AMP/METHAMP Negative (Negative); BARBITURATES Negative (Negative); BENZODIAZEPINES Negative (Negative); COCAINE Negative (Negative); METHADONE Negative (Negative); OPIATES POSITIVE (Negative); PCP Negative (Negative); THC Negative (Negative)
[2019-03-11 20:25] VITALS: BP 93/68
[2019-03-11 21:08] VITALS: BP 105/63
[2019-03-12 00:55] VITALS: BP 89/55
[2019-03-12 04:00] VITALS: BP 103/66
[2019-03-12 08:00] VITALS: BP 114/73
--- NOTE | 2019-03-12 11:10 | NUR ---
ATTMEMPTED TO MEET WITH PT, NONVERBAL AND APPEARS CONFUSED. WAS TANGLED IN HER GOWN AND SHEETS, SPOOLER OPERATOR AWARE AND ASSISTING PT. NO FAMILY IN ROOM, WILL TRY TO REACH
[2019-03-12 14:06] LABS: ABSOLUTE BASOPHILS 0.1 thou/uL (0.0-0.2); ABSOLUTE LYMPHOCYTES 1.6 thou/uL (0.8-5.3); ABSOLUTE MONOCYTES 0.5 thou/uL (0.0-1.2); ABSOLUTE NEUTROPHILS 3.3 thou/uL (1.6-8.1); BASOPHILS 1.5 %; EOSINOPHILS 0.1 %; HEMATOCRIT 25.8 % (37.0-47.0); HEMOGLOBIN 8.6 gm/dL (12.0-15.0); LYMPHOCYTES 29.5 %; MCH 32.6 pg (26.0-34.0); MCHC 33.3 g/dL (28.0-37.0); MONOCYTES 8.6 %; MPV 7.8 fl. (7.2-11.1); NUCLEATED RBCS 0 /100WBC; PLATELET COUNT* 260 thou/uL (150-400); POLYS 60.3 %; RBC 2.63 mil/uL (4.20-5.00); RDW-CV 17.6 % (10.5-14.5); WBC 5.5 thou/uL (4.0-11.0)
[2019-03-12 14:22] LABS: ALBUMIN 2.1 g/dL (3.4-5.0); CREATININE 0.6 mg/dL (0.6-1.3); TOTAL BILIRUBIN 1.6 mg/dL (<0.1-1.0); TOTAL PROTEIN 4.6 g/dL (6.4-8.2)
[2019-03-12 14:26] LABS: POTASSIUM 2.9 mmol/L (3.5-5.1)
[2019-03-12 16:22] VITALS: BP 127/83
--- NOTE | 2019-03-12 17:58 | NUR ---
PATINET RESTING IN BED. MORE ALERT THIS AFTERNOON BUT STILL NOT CONVERSANT. IV FLUIDS PER ORDERS THROUGH RIGHT CHEST PORTACATH. GRACE TO DRAIN WITH DARK YELLO OUTPUT. RIGHT AKA. SPOKE WITH PRIMARY CARE PROVIDER, DR KIRK [phone], AND HE SENT APRIL 2018 URINE CULTURE AND SENSISITIVITY RESULTS RELATED TO HER UTI WITH EBBL PRODUCING ECOLI. RELAYED THIS INFORMATION TO HOSPITALIST AND RECEIVED A CONSULTATION FOR ID. HOURLY ROUNDING COMPLETED FOR PATIENT SAFETY.
[2019-03-12 22:01] VITALS: BP 119/80
[2019-03-13] VITALS: BP 130/76
[2019-03-13 04:00] VITALS: BP 112/78
[2019-03-13 05:24] LABS: ABSOLUTE LYMPHOCYTES 2.3 thou/uL (0.8-5.3); ABSOLUTE MONOCYTES 0.6 thou/uL (0.0-1.2); ABSOLUTE NEUTROPHILS 3.5 thou/uL (1.6-8.1); BASOPHILS 0.7 %; EOSINOPHILS 0.2 %; HEMATOCRIT 27.8 % (37.0-47.0); HEMOGLOBIN 9.3 gm/dL (12.0-15.0); LYMPHOCYTES 36.1 %; MCH 32.7 pg (26.0-34.0); MCHC 33.3 g/dL (28.0-37.0); MCV 98.2 fL (80.0-100.0); MONOCYTES 8.7 %; MPV 8.3 fl. (7.2-11.1); NUCLEATED RBCS 0 /100WBC; PLATELET COUNT* 234 thou/uL (150-400); POLYS 54.3 %; RBC 2.83 mil/uL (4.20-5.00); RDW-CV 17.2 % (10.5-14.5); WBC 6.5 thou/uL (4.0-11.0)
[2019-03-13 06:09] LABS: ALBUMIN 2.1 g/dL (3.4-5.0); CALCIUM 6.8 mg/dL (8.5-10.1); CREATININE 0.5 mg/dL (0.6-1.3); TOTAL BILIRUBIN 2.4 mg/dL (<0.1-1.0); TOTAL PROTEIN 4.8 g/dL (6.4-8.2)
[2019-03-13 06:10] LABS: POTASSIUM 2.5 mmol/L (3.5-5.1)
[2019-03-13 08:00] VITALS: BP 121/85
[2019-03-13 11:17] VITALS: BP 125/84
--- NOTE | 2019-03-13 12:27 | NUR ---
PT STILL NON VERBAL. LYING IN BED. WILL CONTACT SISTER SHE LEFT MESSAGE FOR CM LAST EVENING
[2019-03-13 15:44] VITALS: BP 126/82
--- NOTE | 2019-03-13 19:05 | NUR ---
ASSUMED PT CARE REPORT RECEIVED FROM NURSE. PT IS ALERT AWAKE, UNABLE TO ASSESS ORIENTATION SINCE PT DOES NOT TALK. AGITATED. RIGHT CHEST PORT PATENT. ON RA. IV FLUID INFUSING ORDERED. K REPLACED. IV ABX GIVEN. PT FAMILY VISITED. SPEECH THERAPY ORDERED. NPO STATUS MAINTAINED. FALL PRECAUUTION IN PLACE
--- NOTE | 2019-03-13 19:18 | CON ---
[address] [address] CONSULTATION Name: TONY JOSEPH Room: [place] [address] ADM IN .R.#: [id number] Admission: 03/11/19 Attend Phys: Sonja Isaac Discharge: Date of : 67 Report #: [id number] THIS REPORT FOR: //name// cc: Terrell Squires Gregg R. DO ~ THIS REPORT FOR: //name// CC: Terrell Lockhart DATE OF SERVICE: 03/12/2019 CONSULTATION: Infectious diseases. HISTORY OF PRESENT ILLNESS: Ms Joseph is a 53-year-old female who presents to the hospital on 03/11/2019 with depressed mental status. According to the daughter, the patient was normal the day prior to admission, but when found in the morning of admission was delirious. She was not able to answer questions or walk. In the ER, evidence of urinary tract infection was discovered. Infectious Disease consultation was requested to assist with antibiotic management. PAST MEDICAL HISTORY: The patient has a number of chronic illnesses. She has COPD. She has a history of seizure disorder. She has chronic pain with narcotic use. There is a history of drug overdose. She had a history of C. difficile colitis. She had a number of procedures including rotator cuff surgery, right above knee amputation, gastric bypass, partial gastrectomy, open reduction and internal fixation of her neck, repair of abdominal hernia, section x 3, and tubal ligation. ALLERGIES: HER CHART NOTES ALLERGY TO AUGMENTIN. FAMILY HISTORY: Unavailable. SOCIAL HISTORY: The patient's face sheet lists her as . Her history says that the daughter found the patient tribe this when she came by this morning. It sounds like she probably lives by herself. I do not have any history of tobacco, but the chart notes a past history of alcohol. REVIEW OF SYSTEMS: Unavailable because of the patient's mental status. PHYSICAL EXAMINATION: VITAL SIGNS: The patient is afebrile. Blood pressure was initially 89/54, and with hydration, it nerissa to 114/73. GENERAL: The patient was found in a position, somewhat restless. She would not answer any questions and would tend to resist manipulation for examination. The patient looks significantly older than her stated age. HEENT: Examination was relevant for her eyes being closed. When I opened the eyes, she would tend to try to squint them shut. However, I was able to look at her eyes and see that she had very dilated symmetrical pupils, about 8 mm bilaterally. Her gaze was conjugate, but she did not really track. She would not answer any questions verbally. The patient's mouth demonstrated loss of all of her teeth. NECK: The neck was wheezy supple relative to her general increased tone and a tendency to resist, be moved. HEART: Heart sounds were normal. CHEST: Lungs were clear. She had a Port-A-Cath device in the right upper chest, which appeared unremarkable. She did not demonstrate any tenderness to the back, neck, or flank on palpation. ABDOMEN: The belly was very thin and soft with no tenderness. No mass and no organomegaly. Bowel sounds were normal. EXTREMITIES: Demonstrated the right above-knee amputation. It appeared to be well healed. Her left foot had diminished pulses and the fourth toe appeared very dusky. LABORATORY DATA: The electrolytes showed sodium 115, potassium 2.9, chloride 116, bicarbonate 23, BUN 8, creatinine 0.6, and glucose 98. The nurses report that she is having diarrhea. CBC showed white count 5.5, hemoglobin 8.6, hematocrit 25.8, and platelet 260,000. Liver function tests were elevated with alkaline phosphatase 194, SGOT 191, SGPT 175, and bilirubin 1.9. Urinalysis showed 6-15 white cells. Urine culture is pending. Urine culture showed gram-negative marlen in 04/2018. The patient had a urinary tract infection with ESBL producing E. coli which was resistant to ampicillin, cefazolin, Rocephin, nitrofurantoin, Bactrim, and Cipro. As noted, this was [address] scans showed unremarkable brain, but pancolitis and enlarged fatty liver. Chest x-ray was clear. Urine drug screen was negative for everything except for opiates which are prescribed for the patient. ASSESSMENT AND PLAN: In summary, this is a patient who is significantly obtunded. She appears to have diarrhea, dehydration, and hypokalemia with pancolitis on the CT scan. She has a history of Clostridium difficile disease at some time in the past. In addition, she has markedly enlarged pupils suggesting some kind of toxidrome with anticholinergics. Unusual toxic ingestion such as jimson weed or belladonna can cause dilated pupils. A high dose of antihistamine can sometimes have this reaction. The patient does not appear toxic, but just deeply obtunded and irritable. At this time, I would like to treat the patient for possible resistant bacteria UTI with meropenem. We will await results of the current urine and blood cultures. I would like to empirically begin treating for Clostridium difficile based on the history and the CT scan. We can order Clostridium difficile study, but this may be difficult to collect because of the patient's incontinence. We will start vancomycin by mouth and probiotics. If the patient has fever, we will repeat the blood culture. We will need isolation for resistant bacteria and Clostridium difficile using contact precautions. I would like to check a TSH. We may want to do further studies on possible toxic ingestion if the patient does not wake up and she continues to have dilated pupils. <ELECTRONICALLY SIGNED> By: Amanuel Sellers MD 03/13/19 1918 [id number] Sellers MD /sebastien
[2019-03-13 20:00] VITALS: BP 115/75
[2019-03-14] VITALS: BP 116/69
[2019-03-14 04:00] VITALS: BP 130/83
[2019-03-14 05:40] LABS: ABSOLUTE BASOPHILS 0.2 thou/uL (0.0-0.2); ABSOLUTE LYMPHOCYTES 2.1 thou/uL (0.8-5.3); ABSOLUTE MONOCYTES 0.4 thou/uL (0.0-1.2); ABSOLUTE NEUTROPHILS 2.7 thou/uL (1.6-8.1); BASOPHILS 2.8 %; EOSINOPHILS 0.7 %; HEMATOCRIT 26.5 % (37.0-47.0); HEMOGLOBIN 8.8 gm/dL (12.0-15.0); LYMPHOCYTES 38.8 %; MCH 32.8 pg (26.0-34.0); MCHC 33.1 g/dL (28.0-37.0); MCV 99.2 fL (80.0-100.0); MONOCYTES 8.1 %; MPV 8.2 fl. (7.2-11.1); NUCLEATED RBCS 0 /100WBC; PLATELET COUNT* 183 thou/uL (150-400); POLYS 49.6 %; RBC 2.67 mil/uL (4.20-5.00); RDW-CV 17.7 % (10.5-14.5); WBC 5.4 thou/uL (4.0-11.0)
[2019-03-14 06:15] LABS: ALBUMIN 2.1 g/dL (3.4-5.0); CALCIUM 6.7 mg/dL (8.5-10.1); CREATININE 0.6 mg/dL (0.6-1.3); TOTAL PROTEIN 4.9 g/dL (6.4-8.2)
[2019-03-14 06:17] LABS: POTASSIUM 4.5 mmol/L (3.5-5.1)
[2019-03-14 08:00] VITALS: BP 116/78
--- NOTE | 2019-03-14 11:45 | NUR ---
CONTINUE TO FOLLOW, PT A LITTLE MORE ALERT TODAY AND TALKING NOW. STILL LETHARGIC, HAD GOWN OFF AND SAID HER BED WAS 'WET.' PT DOESN'T REMEMBER SEQUENCE OF EVENTS AND UNABLE TO STATE WHERE SHE IS.
[2019-03-14 11:47] VITALS: BP 116/77
[2019-03-14 16:00] VITALS: BP 103/70
--- NOTE | 2019-03-14 17:14 | NUR ---
ASSUMED PT CARE REPORT RECEIVED FROM NURSE PT IS ALERT AWAKE, ORIENTED TO SELF. SAYS SOME WORDS. ON RA. R CHEST PORT PATENT. TRACING ST ON REPRESENTATIVE PERSONAL SERVICE. IV FLUID INFUSING ORDERED. SPEECH THERAPY SAW PT IN ROOM AND CHANGED DIET ORDER. PT IS A FEEDER. TOOK HER PILLS CRUSHED IN APPLE SAUCE. CONTINENT OF URINE AT TIME INCONTINENT AT OTHER TIME. USES BEDPAN. NO COMPLAINT. FALL PRECAUTION IN PLACE. CALL LIGHT AT REACH. WILL CONTINUE TO MONITOR PT
[2019-03-14 20:00] VITALS: BP 114/77
[2019-03-15] VITALS: BP 102/58
[2019-03-15 04:00] VITALS: BP 91/52
[2019-03-15 08:10] VITALS: BP 103/38
--- NOTE | 2019-03-15 08:10 | NUR ---
ASSUMED PATIENT CARE AT 1900. ASSESSMENT COMPLETED CHARTED. PATIENT IS SR/ST ON THE MONITOR. HOURLY ROUNDING IN PLACE FOR PATIENT SAFETY. CLWR.
[2019-03-15 12:09] VITALS: BP 93/57
--- NOTE | 2019-03-15 14:35 | NUR ---
SPOKE WITH SISTER/FATOU. UPDATE ON POC GIVEN. SHE IS ENCOURAGED. SHE PLANS TO COME IN TOWN ON TUESDAY, WILL F/U WITH HER ON TUESDAY. EMAILED HER SNF LIST AND ASKED THAT SHE CONSIDER SOME OPTIONS. 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 WILL FOLLOW AND ASSIST PT PROGRESSES
[2019-03-15 16:29] VITALS: BP 104/69
[2019-03-15 18:07] LABS: CALCIUM 7.4 mg/dL (8.5-10.1); CREATININE 0.7 mg/dL (0.6-1.3)
--- NOTE | 2019-03-15 18:33 | NUR ---
PATIENT PROGRESSING WELL TOWARDS GOALS. CDIFF SAMPLE SENT THIS SHIFT AND PENDING AT THIS TIME. PATIENT MORE AWAKE AND ALERT THIS SHIFT. NO SHORTNESS OF AIR OR NAUSEA AT THIS TIME. STILL HAS SOME SLIGHT PAIN BUT MEDICATION GIVEN, SEE EMAR. POTASSIUM LOW THIS EVENING, STARTED REPLACEMENT PER PROTOCOL. PATIENT GETTING UP AND DOWN TO WHEELCHAIR WITH ONE ASSIST AND GOING TO BATHROOM. MULTIPLE INCONTINENT EPISODES THIS SHIFT BUT IMPROVING. FLUIDS INFUSING. CALL LIGHT IN REACH, CARIDAC MONITOR, FALL PRECAUTIONS IN PLACE.
[2019-03-15 20:00] VITALS: BP 110/72
[2019-03-16] VITALS: BP 92/51
[2019-03-16 04:00] VITALS: BP 94/55
[2019-03-16 04:08] LABS: HEMATOCRIT 25.2 % (37.0-47.0); HEMOGLOBIN 8.4 gm/dL (12.0-15.0); MCH 33.1 pg (26.0-34.0); MCHC 33.3 g/dL (28.0-37.0); MCV 99.2 fL (80.0-100.0); MPV 7.9 fl. (7.2-11.1); RBC 2.54 mil/uL (4.20-5.00); RDW-CV 16.8 % (10.5-14.5); WBC 4.5 thou/uL (4.0-11.0)
[2019-03-16 04:22] LABS: ALBUMIN 1.6 g/dL (3.4-5.0); CALCIUM 6.5 mg/dL (8.5-10.1); CREATININE 0.6 mg/dL (0.6-1.3); MAGNESIUM 1.8 mg/dL (1.8-2.4); PHOSPHORUS* 1.4 mg/dL (2.5-4.9)
[2019-03-16 04:23] LABS: POTASSIUM 4.3 mmol/L (3.5-5.1)
--- NOTE | 2019-03-16 07:50 | NUR ---
ASSUMED PATIENT CARE AT 1900. ASSESSMENT COMPLETED CHARTED. PATIENT IS SR/ST ON THE MONITOR. HOURLY ROUNDING IN PLACE FOR PATIENT SAFETY. CLWR.
[2019-03-16 08:00] VITALS: BP 96/69
[2019-03-16 11:53] VITALS: BP 99/69
[2019-03-16 12:38] VITALS: BP 104/69
--- NOTE | 2019-03-16 13:37 | NUR ---
CONTINUE TO FOLLOW, PT ALERT AND ORIENTED X4 TODAY. UPDATED HER ON PAST DAYS DISCUSSIONS RE: DPOA/POSSIBLE SNF AND FAMILY CONCERNS. SON AND HER XSPOUSE CAME TO VISIT DURING TALK. PT AT FIRST DECLINED TO CONSIDER SNF BUT AFTER TALKING WITH SON/XSPOUSE STATES SHE WILL CONSIDER NOW. GAVE LIST AND SHE CHOSE WITH HELP FROM FAMILY TO CONSIDER [facility]. CALLED AND FAXED REFERRAL TO [facility]. SHE WILL COME VISIT PT THIS AFTERNOON. DISCUSSED WITH AND PT'S DPOA. IF ACCEPTED, THEY WILL NEED TO OBTAIN INSURANCE AUTH PRIOR TO DC TO SNF. ALSO DISCUSSED POSSIBLE DC HOME WITH HH, [facility] AND THEY ARE IN PT'S INSURANCE NETWORK. WILL FOLLOW
[2019-03-16 16:05] VITALS: BP 97/53
--- NOTE | 2019-03-16 18:50 | NUR ---
VSS, SR TO ST ON TELE, A&OX4, R ABOVE KNEE AMPUTEE, USES BATHROOM WITH HELP OF WHEELCHAIR, POSSESSIONS AND CALL LIGHT WITHIN REACH, HOURLY ROUNDING PERFORMED, SEIZURE PRECAUTIONS
[2019-03-17] VITALS (7 sets, daily range): BP systolic 78–119; BP diastolic 45–83
--- NOTE | 2019-03-17 08:27 | NUR ---
ASSUMED PATIENT CARE AT 1900. ASSESSMENT COMPLETED CHARTED. PATIENT IS NSR ON THE MONITOR. HOURLY ROUNDING IN PLACE FOR PATIENT SAFETY. CLWR.
--- NOTE | 2019-03-17 15:58 | NUR ---
PT VSS, A&OX4, ANXIOUS, NSR ON TELE, RIGHT ABOVE KNEE AMPUTEE, PIVOTS TO COMMODE, USES WHEELCHAIR TO TOILET. PORT RIGHT CHEST, POSSESSIONS AND CALL LIGHT WITHIN REACH. HOURLY ROUNDING PERFORMED.
[2019-03-18] VITALS: BP 93/60
[2019-03-18 04:00] VITALS: BP 103/70
[2019-03-18 04:43] LABS: ABSOLUTE LYMPHOCYTES 1.9 thou/uL (0.8-5.3); ABSOLUTE MONOCYTES 0.5 thou/uL (0.0-1.2); ABSOLUTE NEUTROPHILS 1.8 thou/uL (1.6-8.1); EOSINOPHILS 0.8 %; HEMATOCRIT 24.2 % (37.0-47.0); HEMOGLOBIN 8.1 gm/dL (12.0-15.0); LYMPHOCYTES 44.1 %; MCH 33.4 pg (26.0-34.0); MCHC 33.5 g/dL (28.0-37.0); MCV 99.8 fL (80.0-100.0); MONOCYTES 11.8 %; MPV 8.1 fl. (7.2-11.1); NUCLEATED RBCS 0 /100WBC; PLATELET COUNT* 176 thou/uL (150-400); POLYS 42.3 %; RBC 2.43 mil/uL (4.20-5.00); RDW-CV 16.8 % (10.5-14.5); WBC 4.3 thou/uL (4.0-11.0)
[2019-03-18 04:52] LABS: CREATININE 0.6 mg/dL (0.6-1.3); POTASSIUM 3.1 mmol/L (3.5-5.1)
--- NOTE | 2019-03-18 07:47 | NUR ---
ASSUMED PT CARE AT APPROX 1930. PT IS AWAKE AND ORIENTED X4. VSS ON ROOM AIR. ASSESSMENT DONE AND CHARTED. PT C/O RIGHT STUMP PAIN PARTIALLY RELIEVED BY PAIN MEDS GIVEN PER APR. PT IS ABLE TO SLEEP MOST OF THE NIGHT. CALL LIGHT WITHIN REAACH. HIGH FALL PRECAUTIONS IN PLACE. HOURLY ROUNDING DONE FOR PT SAFETY
[2019-03-18 08:00] VITALS: BP 106/79
[2019-03-18 12:40] VITALS: BP 106/62
--- NOTE | 2019-03-18 15:59 | NUR ---
VSS, MED SURG STATUS, ROOM AIR, ABOVE KNEE AMPUTATION OF RIGHT LEG 5 YEARS AGO. SEIZURE PADS ON BED, PT PIVOTS TO BEDSIDE COMMODE, POTASSIUM 3.1, 3RD OF 4 BAGS HANGING. HOURLY ROUNDING PERFORMED, POSSESSIONS AND CALL LIGHT WITHIN REACH. TRANSFERRED PATIENT TO [facility]. REPORT GIVEN, PATIENT TAKEN BY BED TO 316
--- NOTE | 2019-03-18 17:56 | NUR ---
PATIENT TRANFERED FROM TELEMETRY UNIT THIS EVENING. PATIENT SETTLED TO ROOM. PATIENT HAS COMPLAINTS OF BACK PAIN, TREATED ADEQUATELY WITH MEDICATION. PATIENT REPOSITIONS IN BED. PATIENT DENIES ANY NEEDS AT THIS TIME. CALL LIGHT WITHIN REACH.
[2019-03-18 21:30] VITALS: BP 103/64
--- NOTE | 2019-03-19 06:08 | NUR ---
PATIENT SLEPT PART OF THE NIGHT. PATIENT WAS GIVEN PAIN MEDICINE TWICE THIS SHIFT. R PORT REMAINS SALINE LOCKED. PATIENT COULD POSSIBLY DISCHARGE TO A FACILTY TODAY. WILL CONTINUE TO MONITOR.
[2019-03-19 08:10] VITALS: BP 105/67
[2019-03-19] MEDS ORDERED: CIPRO500 MG PO (12:36)
[2019-03-19] MEDS ORDERED: POTASSIUM20 PO (12:37)
[2019-03-19] MEDS ORDERED: PROBIOTIC1 EAC1 PO (12:37)
[2019-03-19 12:39] VITALS: BP 105/67
[2019-03-19] MEDS ORDERED: VITAMIN D2400 UNIT PO (12:43)
[2019-03-19 14:10] VITALS: BP 105/67
--- NOTE | 2019-03-19 14:14 | NUR ---
SHAAN met with Lauren from [facility] who stated that they were unable to accept pt due to not enough medical concerns to authorize SNF. SHAAN discussed with Dr Love who did not find beneficial for peer to peer and recommended pt be able to dc home with home health to follow. SHAAN spoke with pt sister Prashant who was upset with pt not being accepted to SNF and asked for another day to try to prepare pt apt. Pt son also called and left SHAAN a message to call back after SHAAN had spoken with pt sister. SHAAN returned pt son Giovanny [phone] message and Giovanny expressed his frustration and was also upset with pt to dc home. SHAAN spoke with pt about dc plan and pt was okay with return home with HH pt preference of [facility] as this in network with pt insurance. DC turnaround planner faxed referral and orders to [facility]. Pt called pt family (other children) who were able to provide pt ride home.
--- NOTE | 2019-03-19 14:22 | NUR ---
FAXED REFERRAL TO [facility]. [phone]. WILL CALL TO CONFIRM THEY ARE IN NETWORK AND CAN SEE THE PATIENT.
--- NOTE | 2019-03-19 14:54 | NUR ---
PATIENT POTASSIUM REPLACED IV X 2 PER PROTOCOL AND ORDERS RECEIVED FROM DR. ALVARENGA TO GIVE 60MEQ PO AND DISCHARGE PATIENT. RIGHT CHEST PAC DEACCESSED ORDERED AFTER POTASSIUM INFUSION. PATIENT FAMILY HERE TO TAKE PATIENT HOME. UP WITH [facility]. VERBALIZES UNDERSTANDING OF PAPERWORK AND SCRIPTS, PATIENT ALSO INFORMED THAT SCRIPTS WAITING FOR PATIENT AT PHARMACY. PATIENT TAKEN OUT VIA WHEELCHAIR WITH ALL BELONGINGS.
[2019-03-19 15:26] VITALS: BP 105/67
--- NOTE | 2019-03-21 13:53 | EKG ---
[place] [address] ELECTROCARDIOGRAM REPORT Name: TONY MEDINA Room: [address] IN M.R.#: [id number] Admission: 03/11/19 Attend Phys: Josh Lockhart Discharge: 03/19/19 Date of : 67 Date of Service: 03/11/19 1349 Report #: [id number] THIS REPORT FOR: cc: Terrell Squires Gregg R. DO Blick, David R. MD [facility] ~ THIS REPORT FOR: //name// [facility] ED Test Date: 2019-03-11 Test Time: 13:49:25 Pat Name: TONY MEDINA Department: Room: [facility] Gender: F Health Associate: [facility] : 1965 Requested By: Reji Medel Order Number: [id number] MD: Fernando Villavicencio Measurements Intervals George Rate: 114 P: 83 [place]: 155 QRS: 92 QRSD: 76 T: -80 QT: 312 QTc: 430 Interpretive Statements Sinus tachycardia artifact noted Borderline right axis deviation Low voltage, precordial leads Abnormal R-wave progression, early transition Borderline repolarization abnormality Baseline wander in lead(s) II,III,aVR,aVL,aVF,V2,V3,V4,V5,V6 Compared to ECG 01/14/2019 10:49:51 no change Electronically Signed On 03-12-2019 11:15:04 ACID RETORT OPERATOR by Fernando Villavicencio [email or web address] <ELECTRONICALLY SIGNED> By: Fernando Villavicencio MD, [facility] 03/12/19 1115 1349 1349 Fernando Villavicencio MD, [facility] /EPI
== END 2019-03-19 15:00 | disposition home health service (06) | DRG 871 ==
LOC: M.ERS 12:22 → M.TBA-ER 14:41 → M.2W 14:41 → M.3W 03-18 16:51
PROVIDERS: Family Medicine; Internal Medicine; ADMIT Internal Medicine
DX: A41.59 Other Gram-negative sepsis (principal); G93.41 Metabolic encephalopathy; E44.0 Moderate protein-calorie malnutrition; N12 Tubulo-interstitial nephritis, not specified as acute or chronic; A04.72 Enterocolitis due to Clostridium difficile, not specified as recurrent; R65.20 Severe sepsis without septic shock; B96.4 Proteus (mirabilis) (morganii) as the cause of diseases classified elsewhere; E87.6 Hypokalemia; F32.9 Major depressive disorder, single episode, unspecified; K21.9 Gastro-esophageal reflux disease without esophagitis; D64.9 Anemia, unspecified; K75.9 Inflammatory liver disease, unspecified; E55.9 Vitamin D deficiency, unspecified; E86.0 Dehydration; G89.4 Chronic pain syndrome; J44.9 Chronic obstructive pulmonary disease, unspecified; G40.909 Epilepsy, unspecified, not intractable, without status epilepticus; Z96.659 Presence of unspecified artificial knee joint; Z90.3 Acquired absence of stomach [part of]; Z90.49 Acquired absence of other specified parts of digestive tract; Z87.81 Personal history of (healed) traumatic fracture; Z89.611 Acquired absence of right leg above knee; Z79.2 Long term (current) use of antibiotics; Z98.84 Bariatric surgery status; Z79.899 Other long term (current) drug therapy; Z88.1 Allergy status to other antibiotic agents; Z88.8 Allergy status to other drugs, medicaments and biological substances; Z91.048 Other nonmedicinal substance allergy status; Z68.23 Body mass index [BMI] 23.0-23.9, adult; Z82.49 Family history of ischemic heart disease and other diseases of the circulatory system

== ENCOUNTER 2019-04-05 13:53 | Inpatient (IN) | payer OTHER ==
[~2019-04-05] VITALS: Ht 157.5 cm; Wt 40.8 kg
[~2019-04-05 13:53] MED LIST changes: +CIPRO500 MG PO; +PROBIOTIC1 EAC1 PO; +VITAMIN D2400 UNIT PO
[2019-04-05 13:57] VITALS: BP 116/68
[2019-04-05 14:51] LABS: ABSOLUTE LYMPHOCYTES 2.8 thou/uL (0.8-5.3); ABSOLUTE MONOCYTES 0.5 thou/uL (0.0-1.2); ABSOLUTE NEUTROPHILS 3.5 thou/uL (1.6-8.1); BASOPHILS 0.4 %; EOSINOPHILS 0.6 %; HEMATOCRIT 25.9 % (37.0-47.0); HEMOGLOBIN 8.8 gm/dL (12.0-15.0); LYMPHOCYTES 41.2 %; MCH 34.1 pg (26.0-34.0); MCHC 33.8 g/dL (28.0-37.0); MCV 100.9 fL (80.0-100.0); MONOCYTES 6.6 %; NUCLEATED RBCS 0 /100WBC; PLATELET COUNT* 386 thou/uL (150-400); POLYS 51.2 %; RBC 2.57 mil/uL (4.20-5.00); RDW-CV 17.7 % (10.5-14.5); WBC 6.9 thou/uL (4.0-11.0)
[2019-04-05 15:01] LABS: ACETAMINOPHEN 4 ug/mL (10-30); ALCOHOL < 10 mg/dL (<10); SALICYLATE < 2.8 mg/dL (2.8-20.0)
[2019-04-05 15:04] LABS: ALBUMIN 2.1 g/dL (3.4-5.0); CALCIUM 7.6 mg/dL (8.5-10.1); CREATININE 0.6 mg/dL (0.6-1.3); POTASSIUM 3.4 mmol/L (3.5-5.1); TOTAL BILIRUBIN 1.8 mg/dL (<0.1-1.0); TOTAL PROTEIN 5.5 g/dL (6.4-8.2)
[2019-04-05 16:10] LABS: ICTOTEST (BILI CONFIRMATORY) Negative (Negative); URINE BILIRUBIN 2+ (Negative); URINE BLOOD NEGATIVE (Negative); URINE CLARITY CLEAR; URINE COLOR DARK YELLOW; URINE GLUCOSE-RANDOM NEGATIVE (Negative); URINE KETONES 1+ (Negative); URINE LEUKOCYTES-REFLEX NEGATIVE (Negative); URINE NITRITE-REFLEX NEGATIVE (Negative); URINE PROTEIN TRACE (Negative); URINE SPECIFIC GRAVITY >= 1.030 (1.005-1.030)
[2019-04-05 16:23] LABS: AMP/METHAMP Negative (Negative); BARBITURATES Negative (Negative); BENZODIAZEPINES Negative (Negative); COCAINE Negative (Negative); METHADONE Negative (Negative); OPIATES POSITIVE (Negative); PCP Negative (Negative); THC Negative (Negative)
[2019-04-05 16:24] LABS: HYALINE CASTS 0-3 Few /LPF (None Seen); MUCUS None Seen strn/LPF (None Seen); SQUAMOUS >10 Many /LPF (0-3)
[2019-04-05 16:25] LABS: BACTERIA-REFLEX None Seen /HPF (None Seen); CRYSTALS None Seen /LPF (None Seen); URINE RBC None Seen /HPF (0-2); URINE WBC-REFLEX 0-5 Rare /HPF (0-5)
[2019-04-05 17:26] VITALS: BP 104/68
[2019-04-05 19:55] VITALS: BP 85/52
[2019-04-05 22:00] VITALS: BP 94/56
[2019-04-06 00:28] VITALS: BP 90/47
[2019-04-06 07:13] VITALS: BP 95/65
[2019-04-06 08:21] VITALS: BP 99/64
[2019-04-06 15:47] VITALS: BP 105/65
[2019-04-06 23:01] VITALS: BP 116/67
[2019-04-07 07:30] VITALS: BP 107/65
[2019-04-07] MEDS ORDERED: LAMICTAL5 MG PO (10:46)
[2019-04-07] MEDS ORDERED: LAMICTAL25 MG PO (10:47)
[2019-04-07 16:00] VITALS: BP 121/74
[2019-04-07 20:20] VITALS: BP 111/66
[2019-04-08 08:35] VITALS: BP 119/64
[2019-04-08 16:35] VITALS: BP 117/75
[2019-04-08 19:45] VITALS: BP 109/68
[2019-04-09] VITALS (7 sets, daily range): BP systolic 80–107; BP diastolic 49–69
[2019-04-09 05:24] LABS: HEMATOCRIT 25.2 % (37.0-47.0); HEMOGLOBIN 8.3 gm/dL (12.0-15.0); MCH 33.4 pg (26.0-34.0); MCHC 32.7 g/dL (28.0-37.0); MCV 101.9 fL (80.0-100.0); MPV 7.4 fl. (7.2-11.1); RBC 2.47 mil/uL (4.20-5.00); WBC 8.5 thou/uL (4.0-11.0)
[2019-04-09 05:36] LABS: ALBUMIN 1.7 g/dL (3.4-5.0); CALCIUM 7.4 mg/dL (8.5-10.1); CREATININE 0.6 mg/dL (0.6-1.3); MAGNESIUM 1.9 mg/dL (1.8-2.4); POTASSIUM 4.5 mmol/L (3.5-5.1); TOTAL BILIRUBIN 0.8 mg/dL (<0.1-1.0); TOTAL PROTEIN 4.6 g/dL (6.4-8.2)
[2019-04-09 12:03] LABS: INR 1.4; PROTIME 13.8 Seconds (9.20-11.50)
--- NOTE | 2019-04-09 21:20 | CON ---
[address] [address] CONSULTATION Name: TONY MEDINA Room: [address] IN M.R.#: [id number] Admission: 04/05/19 Attend Phys: Sonja Isaac Discharge: Date of : 67 Report #: [id number] THIS REPORT FOR: //name// cc: Roberta Squires Gregg R. DO ~ THIS REPORT FOR: //name// CC: ROBERTA Lockhart DICTATED BY: Naina Ignacio [facility] DATE OF SERVICE: 04/06/2019 Please note, at the time of this dictation, the patient was seen and physically examined by myself. REASON FOR CONSULTATION: Elevated ammonia level. HISTORY OF PRESENT ILLNESS: This is a 53-year-old female who presented to the Emergency Room after her home health nurse noticed that she was having increased confusion over the last couple of days. She states that she has fallen bending over to pick something up. She thinks she struck her head on her left knee and also complaining that her left shoulder hurts as well. The patient states that her bowels are moving around 4 times a day. Otherwise, she is not having any other issues at this time. She denies any nausea, vomiting, or any acid reflux. She did undergo an EGD and colonoscopy back in 01/2018 that showed thrush, and gastrojejunostomy was noted colon hemorrhoids and a polyp with diverticulosis noted, otherwise, negative. Her chronic anemia is iron and B12 deficiency. It has also been noted, she has had elevated alkaline phosphatase for a long time; however, total bilirubin has been elevated in the month of March. Prior to that, it had been intermittent. The patient denies any abdominal pain at this time. The patient does have a little bit of difficulty with her word finding skills. ALLERGIES: AMOXICILLIN, POTASSIUM, TRAMADOL, ADHESIVE, AUGMENTIN. MEDICATIONS FROM HOME: Cymbalta, [place], Tums, Neurontin, and Ambien. PAST MEDICAL HISTORY: History of seizures, history of C. difficile, fatty liver disease. PAST SURGICAL HISTORY: She had a gastrectomy, 3 C-sections, bilateral tubal ligation, plastic Surgery for skin removal, cholecystectomy, neck fracture repair, right elbow tendon reconstruction, cervical ablation, right AKA, [place] [address] CONSULTATION Name: TONY MEDINAN Room: [address] IN [facility]#: [id number] Admission: 04/05/19 Attend Phys: Sonja Isaac Discharge: Date of : 67 Report #: [id number] cyst removed, abdominal hernia mesh repair. She had had gastric bypass prior to her grasps gastrectomy and left shoulder surgery in 08/2018. FAMILY HISTORY: Noncontributory. SOCIAL HISTORY: Past use of alcohol. Denies any recreational drug use and denies any tobacco use. REVIEW OF SYSTEMS: Twelve-point review of systems is essentially negative except what is mentioned in the HPI. PHYSICAL EXAMINATION: VITAL SIGNS: Temperature 36.7, pulse 94, respirations 17, blood pressure 99/64. HEART: Regular rate and rhythm. LUNGS: Diminished, but clear. ABDOMEN: Soft, positive bowel sounds in all 4 quadrants with no masses or tenderness noted. LABORATORY DATA: Hemoglobin 8.8, white count 9.9, and platelets 386. Total bilirubin 1.8, alkaline phosphatase 175, ALT 66, and AST 45. IMAGING STUDIES: CT done in 03/2019 showed severe fatty infiltration of the liver with some enlargement noted, otherwise, negative with some earlier pancolitis noted. IMPRESSION: 1. Altered mental status. 2. Elevated ammonia level. 3. History of elevated LFTs. 4. Fatty liver disease. 5. Chronic anemia secondary to iron and B12 deficiency. PLAN: 1. We will do an ultrasound of her abdomen. 2. Further recommendations to be made after Dr. Rodgers sees the patient later today. Thank you for allowing us to participate in this patient's care. Please do not hesitate to call with any questions in regard to this consult. I agree with the above treatment and plan [place] [address] CONSULTATION Name: TONY MEDINA Room: [address] ADM IN ..#: [id number] Admission: 04/05/19 Attend Phys: Sonja Isaac Discharge: Date of : 67 Report #: [id number] <ELECTRONICALLY SIGNED> By: Blayne Rodgers, 04/09/192119 1050 1222Blayne Rodgers, [place] /
[2019-04-10 06:50] LABS: HEMOGLOBIN 7.5 gm/dL (12.0-15.0); MCH 33.5 pg (26.0-34.0); MCHC 32.6 g/dL (28.0-37.0); MCV 102.6 fL (80.0-100.0); MPV 8.1 fl. (7.2-11.1); RBC 2.24 mil/uL (4.20-5.00); RDW-CV 17.4 % (10.5-14.5); WBC 5.8 thou/uL (4.0-11.0)
[2019-04-10 07:19] LABS: ALBUMIN 1.5 g/dL (3.4-5.0); CALCIUM 7.2 mg/dL (8.5-10.1); CREATININE 0.5 mg/dL (0.6-1.3); POTASSIUM 4.1 mmol/L (3.5-5.1); TOTAL BILIRUBIN 0.8 mg/dL (<0.1-1.0)
[2019-04-10 08:00] VITALS: BP 105/78
[2019-04-10 15:45] VITALS: BP 107/68
[2019-04-10 20:00] VITALS: BP 96/62
[2019-04-11 07:55] VITALS: BP 102/64
[2019-04-11 16:00] VITALS: BP 106/66
[2019-04-11 20:35] VITALS: BP 105/64
[2019-04-12 06:41] LABS: HEMATOCRIT 23.8 % (37.0-47.0); HEMOGLOBIN 7.6 gm/dL (12.0-15.0); MCHC 32.2 g/dL (28.0-37.0); MCV 102.4 fL (80.0-100.0); MPV 8.5 fl. (7.2-11.1); RBC 2.32 mil/uL (4.20-5.00); RDW-CV 17.1 % (10.5-14.5); WBC 6.8 thou/uL (4.0-11.0)
[2019-04-12 07:07] LABS: ALBUMIN 1.5 g/dL (3.4-5.0); CALCIUM 7.5 mg/dL (8.5-10.1); CREATININE 0.5 mg/dL (0.6-1.3); POTASSIUM 4.5 mmol/L (3.5-5.1); TOTAL BILIRUBIN 0.8 mg/dL (<0.1-1.0); TOTAL PROTEIN 4.2 g/dL (6.4-8.2)
[2019-04-12 09:00] VITALS: BP 106/63
[2019-04-12] MEDS ORDERED: AMBIEN 5 MG TABL5 M1 PO (12:23)
[2019-04-12] MEDS ORDERED: NORCO 7.5-3251 EACH PO (12:23)
[2019-04-12 16:26] VITALS: BP 99/53
[2019-04-12 16:27] LABS: BE 0 mmol/L (-2 to +3); PCO2 37.6 mmHg (35.0-45.0); pH 7.428 (7.340-7.450)
[2019-04-12 16:31] LABS: PO2 142.2 mmHg (75.0-100.0)
[2019-04-12 18:28] LABS: URINE BILIRUBIN NEGATIVE (Negative); URINE BLOOD TRACE (Negative); URINE CLARITY CLEAR; URINE COLOR YELLOW; URINE GLUCOSE-RANDOM NEGATIVE (Negative); URINE KETONES NEGATIVE (Negative); URINE LEUKOCYTES-REFLEX 1+ (Negative); URINE PROTEIN NEGATIVE (Negative); URINE UROBILINOGEN 0.2 E.U./dl (0.2-1.0)
[2019-04-12 18:35] LABS: URINE NITRITE-REFLEX POSITIVE (Negative)
[2019-04-12 18:36] LABS: CRYSTALS None Seen /LPF (None Seen); HYALINE CASTS 4-10 Moderate /LPF (None Seen); MUCUS None Seen strn/LPF (None Seen); SQUAMOUS 4-10 Moderate /LPF (0-3); URINE RBC 0-2 Rare /HPF (0-2); URINE WBC-REFLEX 0-5 Rare /HPF (0-5)
[2019-04-12 20:15] VITALS: BP 101/58
[2019-04-13 07:18] LABS: ALBUMIN 1.4 g/dL (3.4-5.0); CALCIUM 7.2 mg/dL (8.5-10.1); CREATININE 0.6 mg/dL (0.6-1.3); POTASSIUM 4.6 mmol/L (3.5-5.1); TOTAL BILIRUBIN 0.7 mg/dL (<0.1-1.0); TOTAL PROTEIN 4.1 g/dL (6.4-8.2)
[2019-04-13 08:00] VITALS: BP 97/63
[2019-04-13 12:24] VITALS: BP 101/58
--- NOTE | 2019-04-13 14:58 | EKG ---
[place] [address] ELECTROCARDIOGRAM REPORT Name: ADAMTONY LYNN Room: [address] IN [facility].#: [id number] Admission: 04/05/19 Attend Phys: Josh Lockhart Discharge: 04/13/19 Date of : 67 Date of Service: 04/05/19 1437 Report #: [id number] THIS REPORT FOR: //name// [facility] ED Test Date: 2019-04-05 Test Time: 14:37:32 Pat Name: TONY MEDINA Department: Room: Gender: F Food Operations Manager: BRIAN : 1965 Requested By: Leigh Diaz Order Number: [id number] MD: Bob Chester Measurements Intervals [place] Rate: 94 P: 68 TN: 155 QRS: 74 QRSD: 82 T: 35 QT: 361 QTc: 452 Interpretive Statements Sinus rhythm Low voltage, precordial leads Baseline wander in lead(s) V2 Compared to ECG 03/11/2019 13:49:25 Sinus tachycardia no longer present Electronically Signed On 04-05-2019 16:01:13 WASTEWATER PROJECT MANAGER by Bob Chester [email or web address] <ELECTRONICALLY SIGNED> By: Bob Chester MD, FACC 04/05/19 1601 1437 1437 Bob Chester MD, FACC /EPI
--- NOTE | 2019-04-16 11:07 | PATH ---
[address] [address] PATHOLOGY RPT PROCEDURE Name: LEATHA JOSEPH Room: [address] IN .R.#: [id number] Admission: 04/05/19 Date of : 67 Discharge: 04/13/19 Report #: [id number] Path Case #: [id number] [facility] Accession Number: [id number] . 01 Material submitted: . liver - LIVER BIOPSY . 01 Clinical history: . Elevated LFT's . 02 Diagnosis: Liver biopsy: - Benign liver with severe macrovesicular steatosis (Grade III), hepatocyte ballooning (Grade II), lobular inflammation (Grade I), and with bridging fibrosis (Stage III). See comment. (NIKOLAS:scott 04/11/2019) QTP 04/11/2019 1219 Local . 02 Comment: Properly controlled special stains are performed on each of A1 through A3 with results on each as follows: Iron: Negative PAS with and without diastase: No diastases resistant globules Reticulin and trichrome: Bridging fibrosis with easily identified pericellular fibrosis . This case will be forwarded to the [facility] department of hepatopathology in consultation and an addendum report will be issued. (NIKOLAS:pit 04/11/2019) . . 02 Addendum: . Special studies report received from [address] [address], on case [id number], labeled with their number [id number], dated 04/13/2019. . [facility] Pathology Consultation . Pathology Consult . Interpretation . FINAL DIAGNOSIS Liver, needle biopsy ([id number]; 04/09/2019): Severe steatosis with evidence of steatohepatitis. Marked bile duct injury and bile ductular proliferation. Zone 3 pericellular and periportal with rare bridging fibrosis (stage 2-3 of 4). [place] [address] PATHOLOGY RPT PROCEDURE Name: LEATHA JOSEPH Room: [address] IN M.R.#: [id number] Admission: 04/05/19 Date of : 67 Discharge: 04/13/19 Report #: [id number] Path Case #: [id number] . COMMENT This biopsy is adequate for interpretation. Portal tracts show minimal inflammation primarily composed of lymphocytes without significant interface activity. The bile duct, hepatic artery, and portal vein branches appear intact. The bile ducts show lymphocytic cholangitis and bile duct injury with associated bile ductular proliferation in several portal tracts. There is no evidence of periductal fibrosis or florid bile duct lesions. The hepatic parenchyma shows severe macrovesicular steatosis (80%) with frequent ballooned hepatocytes with poorly formed Taryn hyaline. There is mild spotty lobular inflammation and lobular acute cholestasis. Trichrome, reticulin, iron, PAS-D, and PAS stains were performed at the submitting institution and reviewed at [facility]. Trichrome stain shows zone 3 pericellular fibrosis and periportal and rare bridging fibrosis. Iron stains show minimal iron within Kupffer cells and hepatocytes. PAS-D stains are negative for cytoplasmic globules within hepatocytes. PAS D stains highlights glycogen within hepatocytes. Reticulin stains show an intact reticulin meshwork. . This liver biopsy specimen is from a 53-year-old woman who presented with confusion and a recent fall. She has had an elevated alkaline phosphatase for a long time liver enzymes from 04/09/2019 are as follows: ALT 48, AST 48, alkaline phosphatase 143, and total bilirubin 0.8. Hepatitis A, B, and C serologies are negative. . Overall, the biopsy shows severe steatosis with evidence of steatohepatitis. There is also evidence of bile duct injury and bile ductular proliferation raising the possibility of large duct obstruction. These findings are not entirely specific but raise possibility of drug/toxin injury including alcohol. Clinical correlation is recommended. . Thank you for sharing this case with me. Your submitted material is enclosed. If you have any questions, please do not hesitate to reach me at [phone]. . Participated in the Interpretation Dutch Messer M.D.-Pathology Fellow . Material Received . Report electronically signed by . Bg Barrow M.D. [phone] I verify that I have examined all relevant slides/materials for the specimen(s) and rendered or confirmed the diagnosis. . Material Received A. [id number]: [place] [address] PATHOLOGY RPT PROCEDURE Name: LEATHA JOSEPH Room: [address] IN [facility]#: [id number] Admission: 04/05/19 Date of : 67 Discharge: 04/13/19 Report #: [id number] Path Case #: [id number] 18 stained slides, 1 block . A complete copy of the report is on file. . Professional services [place] [address]. Technical services performed by [address], [address] [address]. . (NIKOLAS:amheladio 04/16/2019) . AZJ/04/16/2019 Addendum Electronically Signed by Greg Treadwell MD, Pathologist . 02 Electronically signed: . Greg Treadwell MD, Pathologist NPI- [id number] . 01 Gross description: . The specimen is received in formalin, labeled "Leatha Joseph, liver BX" and consists of 5 needle cores of delgado-brown tissue measuring between 0.3 cm and 1.7 cm in length and 0.1 cm or less each in diameter. They are entirely submitted in A1-A3. (SDY; 04/10/2019) SYU/SYU 04/11/2019 1206 Local . 02 Pathologist provided ICD-10: K76.0, K75.9, K74.0 . 02 CPT . 248469, 774219, 493736, 907286, 733424, 061167 Specimen Comment: A courtesy copy of this report has been sent to [phone], [phone] Specimen Comment: [phone], Specimen Comment: Report sent to ,DR HOWELL / DR KIRK Performed at: [address] [facility], [place], [place] [id number] MD Osmel Calderon MD Phone: [phone] Performed at: [address] [address], [place], [place] [id number] MD Greg Treadwell MD Phone: [phone]
== END 2019-04-13 13:45 | DRG 441 ==
LOC: M.ERS 13:53 → M.TBA-ER 16:39 → M.3W 16:39
PROVIDERS: Family Medicine; Nurse Practitioner Family; ADMIT Internal Medicine
PROC: 0FB13ZX Excision of Right Lobe Liver, Percutaneous Approach, Diagnostic (ICD-10-PCS; principal; 2019-04-11)
DX: K76.0 Fatty (change of) liver, not elsewhere classified (principal); G93.41 Metabolic encephalopathy; E43 Unspecified severe protein-calorie malnutrition; Z68.1 Body mass index [BMI] 19.9 or less, adult; E53.8 Deficiency of other specified B group vitamins; R33.9 Retention of urine, unspecified; Z96.659 Presence of unspecified artificial knee joint; G89.4 Chronic pain syndrome; G40.909 Epilepsy, unspecified, not intractable, without status epilepticus; K21.9 Gastro-esophageal reflux disease without esophagitis; F32.9 Major depressive disorder, single episode, unspecified; E55.9 Vitamin D deficiency, unspecified; D64.9 Anemia, unspecified; Z28.21 Immunization not carried out because of patient refusal; Z90.3 Acquired absence of stomach [part of]; Z90.49 Acquired absence of other specified parts of digestive tract; Z89.611 Acquired absence of right leg above knee; Z88.8 Allergy status to other drugs, medicaments and biological substances; Z82.49 Family history of ischemic heart disease and other diseases of the circulatory system